=== PATIENT | male | born 1955 | race Caucasian/White ===

== ENCOUNTER 2021-10-27 05:44 | Observation (INO) ==
[2021-10-27] MEDS ORDERED: ONDANSETRON INJ 2 MG/ML 2 ML VIAL ONE ×2 (06:05→10:35)
[2021-10-27] MEDS ORDERED: MoRPHine SULFATE 4 MG/ML 1 ML CARP\\VIAL ONE (06:06)
[2021-10-27] MEDS ORDERED: KETOROLAC 30 MG/ML VIAL ONE ×2 (06:06→11:26)
[2021-10-27] MEDS ORDERED: SODIUM CHLORIDE 0.9% 1000ML 1,000 ML IV STA (06:09)
[2021-10-27] MEDS ORDERED: MoRPHine SULFATE 4 MG/ML 1 ML CARP\\VIAL IV STA ×2 (06:13→06:47)
[2021-10-27] MEDS ORDERED: ONDANSETRON INJ 2 MG/ML 2 ML VIAL IV STA (06:13)
[2021-10-27] MEDS ORDERED: KETOROLAC 30 MG/ML VIAL IV ONE (06:14)
[2021-10-27 06:18] LABS: Basophils # (auto) 0.03 K/uL (0-0.2); Basophils % (auto) 0.2 %; Eosinophils # (auto) 0.15 K/uL (0-0.5); Eosinophils % (auto) 0.8 %; Hematocrit (blood only) 47.2 % (42-52); Hemoglobin 16.7 g/dL (14.0-18.0); Immature Granulocytes # (auto) 0.26 K/uL (0.00-0.02); Immature Granulocytes % (auto) 1.5 %; Lymphocytes # (auto) 3.66 K/uL (1.2-3.4); Lymphocytes % (auto) 20.6 %; Mean Corpuscular Hemoglobin 31.2 pg (25-34); Mean Corpuscular Hgb Conc 35.4 g/dL (32-36); Mean Corpuscular Volume 88.1 fL (80-100); Mean Platelet Volume 9.3 fL (7.4-10.4); Monocytes # (auto) 1.93 K/uL (0.11-0.59); Monocytes % (auto) 10.8 %; Neutrophils # (auto) 11.76 K/uL (1.4-6.5); Neutrophils % (auto) 66.1 %; Platelet Count 325 K/uL (130-400); RDW Coefficient of Variation 13.1 % (11.5-14.5); RDW Standard Deviation 42.6 fL (36.4-46.3); Red Blood Count 5.36 M/uL (4.7-6.1); White Blood Count 17.79 K/uL (4.8-10.8)
--- NOTE | 2021-10-27 06:19 | Emergency Department Note ---
Impression & Plan Hydronephrosis with renal and ureteral calculus obstruction Admit to [facility] Hospitalist ED Provider Note NAME: CHRISTINA SULLIVAN SR AGE: 66 SEX: M ARRIVES VIA: Walk-In INFORMANT: Patient and his ED PROVIDER(S): Ese Willard DO CHIEF COMPLAINT: Right-sided abdominal pain and flank pain PLAN: Disposition: Discharged home Condition: Fair Outpatient prescription management: flomax at night and Percocet for pain Referral: Dr. Faust from urology MEDICAL DECISION MAKING: This is a 66-year-old male patient who presents to the emergency department with right-sided abdominal pain and flank pain that started around 9 PM last evening. Triage Nursing notes reviewed and agree with them. Additional history obtained from his is at the bedside Vital Signs: reviewed and remarkable for no significant abnormalities Differential diagnosis: Diverticulitis, pyelonephritis, ureteral colic, obstructive uropathy, colitis ER treatment provided: IV normal saline bolus IV Toradol IV Zofran IV morphine X2 IV Dilaudid Diagnostics interpreted by me: Laboratory studies: Imaging studies: CT OF THE ABDOMEN AND PELVIS WITHOUT CONTRAST CLINICAL HISTORY: Right flank pain. Evaluate for stone. COMPARISON STUDY: CT of the abdomen and pelvis January 25, 2012. TECHNIQUE: Axial images of the abdomen and pelvis were obtained without IV contrast. Images were reviewed in the axial, sagittal, and coronal planes. Automated exposure control was utilized for the study. A dose lowering technique was utilized adhering to the principles of ALARA. FINDINGS: A 5 mm distal right ureteral calculus located 1 cm proximal to the ureterovesical junction results in mild right hydroureteronephrosis. No additional urinary calculi are identified. Water attenuation right renal lesions are suboptimally assessed on this unenhanced exam but favor cysts. These measure up to 5.7 cm. There is no left hydronephrosis. There are small bilateral parapelvic cysts. Evaluation of the remainder of the abdomen and pelvis is suboptimal on this unenhanced exam. Hepatic steatosis is noted. Spleen, adrenal glands and pancreas are unremarkable. There is no biliary or pancreatic ductal dilatation. Appendix is unremarkable. No evidence for a bowel obstruction. No bowel wall thickening on this unenhanced exam. There is no lymphadenopathy. No acute fracture or suspicious lesion is identified. IMPRESSION: 5 mm distal right ureteral calculus results in mild right hydrouret eronephrosis. Consultants: I discussed the case with [facility] urology HPI: 66/M arrives for evaluation of right-sided flank pain and abdominal pain. The patient developed some right-sided flank pain that radiated into his right groin around 9 PM last evening. Patient's pain has become significantly worse throughout the night. He has never had pain like this in the past. ROS: See above HPI for pertinent positives & negatives. A total of 10 systems reviewed and were otherwise negative. PAST MEDICAL HISTORY:See Below PAST SURGICAL HISTORY:See Below FAMILY HISTORY:See Below SOCIAL HISTORY:See Below HOME MEDICATIONS:See List ALLERGIES:See list VITALS:See Below PHYSICAL EXAMINATION: HEENT: Head - normocephalic and atraumatic. Pupils are equal, round, and reactive to light. Extraocular eye muscles are intact, and sclera are anicteric. Nose - moist nasal mucosa without discharge. Mouth - moist buccal mucosa. Oropharynx is nonerythematous and there is no tonsillar exudate or edema noted. Neck: Supple; no adenopathy noted Heart: Regular rate and rhythm. There is a normal S1 and S2 with no murmurs, clicks, or gallops appreciated. Lungs: Clear to auscultation bilaterally with no wheezes, rales, or rhonchi. Abdomen: Soft, right lower quadrant abdominal pain, nondistended, with good bowel sounds. There are no palpable pulsatile masses or hepatosplenomegaly. There is no guarding, rigidity, or rebound noted. Extremities: No evidence of cyanosis, clubbing, or edema. There are easily palpable peripheral pulses. Skin: Warm and diaphoretic with good turgor and no rashes. ED COURSE: Times/Reassessments: 555: The patient was evaluated in room C1. A complete history and physical was performed. An IV lock was initiated and labs were drawn as above. The patient was bolused with IV normal saline solution. He was given 30 mg of IV Toradol, 4 mg of IV Zofran and 4 mg of IV morphine. Patient went for CT scan of the abdomen/pelvis. Upon returning from radiology, the patient remained somewhat uncomfortable. He was given a second dose of IV morphine. The results of the laboratory studies and CT scan with the patient and his . The plan was for the patient to be discharged home but upon preparation for discharge, the patient had return of his pain that was quite severe. A dose of IV Dilaudid. I discussed the case with [facility] urology. They recommended admission to the [facility] Hospitalist group and they would consult and consider stent placement Ese Willard DO Past Med/Surg History Medical History (Updated 10/27/21 @ 07:59 by Ese Willard DO) Acute kidney injury Chronic pain Edema of right ankle GERD without esophagitis Hypertension Right ankle pain Surgical History History of cervical spinal surgery History of lumbar surgery Family History Denies family history of Ovarian cancer Prostate cancer Myocardial infarction Breast cancer Colorectal cancer Social History (Updated 09/21/21 @ 17:41 by LETTY Seals) Smoking Status: Former smoker Age Started Using Tobacco: 18; Age Quit Using Tobacco: 35; packs per day: 5; Second Hand Exposure: No; Hx Alcohol Use: No Hx Substance Use: No Preferred Language: Lithuanian Communication Ability: Effective Visual Impairment: No Limitations Hearing Ability: Normal [employer] Efficient [employer] Manager Required: No Beliefs That Will Affect Care: None marital status: Current Living Situation: Spouse current occupational status: retired How many Children do You have: 2 Feels Safe at Home: Yes Childhood Exposure to Second-Hand Smoke: No caffeine: No during the past year weight has: remained stable Dental Care, Regularly: Yes Physical Activity Frequency: Daily Seatbelt Use: always Sunscreen Use: No Assistive Devices: Glasses Allergies Allergies Allergy/AdvReac Type Severity Reaction Status Date / Time pregabalin [From Lyrica CR] Allergy Severe anaphylaxis Verified 10/27/21 07:45 gabapentin Allergy Intermediate Extreme Verified 10/27/21 07:45 nausea and vomitting Home Meds Home Medications Medication Instructions Recorded Confirmed famotidine 10 mg tablet 10 mg PO BID PRN 10/27/21 10/27/21 Previous Rx's Medication Instructions Recorded promethazine-DM 6.25 mg-15 mg/5 mL 5 ml PO Q6H PRN #200 ml 05/10/21 oral syrup albuterol sulfate 90 mcg/actuation See Rx Instructions INHALATION 08/01/21 aerosol inhaler (Ventolin HFA) .COMPLEX PRN #8.5 g amlodipine 5 mg tablet 5 mg PO BID #180 tab 08/01/21 cyclobenzaprine 10 mg tablet 5 - 10 mg PO TID #90 tab 08/01/21 fentanyl 50 mcg/hr transdermal 1 patch TD Q72H #10 ea 08/01/21 patch fluticasone propionate 50 2 spray INTRANASAL DAILY #16 g 08/01/21 mcg/actuation nasal spray,suspension (Flonase Allergy Relief) hydrocodone 7.5 mg-acetaminophen 1 tab PO BID PRN #70 tab 08/01/21 325 mg tablet lisinopril 10 mg tablet 10 mg PO DAILY #90 tab 08/01/21 pantoprazole 40 mg tablet,delayed 40 mg PO .COMPLEX #90 tab 08/01/21 release prednisone 10 mg tablet See Rx Instructions PO DAILY #30 09/26/21 tab colchicine 0.6 mg tablet 0.6 mg PO BID PRN #30 tab 10/21/21 oxycodone-acetaminophen 5 mg-325 2 tab PO Q6H PRN #20 tab 10/27/21 mg tablet (Percocet) tamsulosin 0.4 mg capsule (Flomax) 0.4 mg PO HS #10 cap 10/27/21 Results & Data (ED) Vital Signs Vital Signs - 24 hr 10/27/21 05:47 10/27/21 06:15 10/27/21 06:30 Temperature 35.6 C L 36.6 C Temperature Source Temporal Artery Scan Oral Pulse Rate 70 Pulse Rate [Right Finger] 56 L Pulse Rhythm [Right Finger] Regular Pulse Strength [Right Finger] Normal Respiratory Rate 24 20 Respiratory Effort / Characteristics Non-Labored Spontaneous Respiratory Depth Normal Respiratory Pattern Tachypnea Blood Pressure [Right Arm] 130/84 Blood Pressure Mean [Right Arm] 99 Blood Pressure Position [Right Arm] Lying Pulse Oximetry 98 97 90 Oxygen Delivery Method Room Air Room Air Room Air Oxygen Flow Rate Sepsis Recent Fever Within 48 Hours No Sepsis New/Unexplained Change in Mental Status No Sepsis Action Taken by Nursing No Action Required 10/27/21 06:35 10/27/21 07:00 Temperature Temperature Source Pulse Rate Pulse Rate [Right Finger] Pulse Rhythm [Right Finger] Pulse Strength [Right Finger] Respiratory Rate Respiratory Effort / Characteristics Respiratory Depth Respiratory Pattern Blood Pressure [Right Arm] Blood Pressure Mean [Right Arm] Blood Pressure Position [Right Arm] Pulse Oximetry 94 98 Oxygen Delivery Method Nasal Cannula Nasal Cannula Oxygen Flow Rate 2 2 Sepsis Recent Fever Within 48 Hours Sepsis New/Unexplained Change in Mental Status Sepsis Action Taken by Nursing Laboratory Data Result diagrams: 10/27/21 06:00 10/27/21 06:00 Lab Results 10/27/21 10/27/21 10/27/21 Range/Units 06:00 06:00 06:00 WBC 17.79 H (4.8-10.8) K/uL RBC 5.36 (4.7-6.1) M/uL Hgb 16.7 (14.0-18.0) g/dL Hct 47.2 (42-52) % MCV 88.1 (80-100) fL MCH 31.2 (25-34) pg MCHC 35.4 (32-36) g/dL RDW Std Deviation 42.6 (36.4-46.3) fL RDW Coeff of Dora 13.1 (11.5-14.5) % Plt Count 325 (130-400) K/uL MPV 9.3 (7.4-10.4) fL Immature Gran % (Auto) 1.5 % Neut % (Auto) 66.1 % Lymph % (Auto) 20.6 % [place] % (Auto) 10.8 % Eos % (Auto) 0.8 % Baso % (Auto) 0.2 % Neut # (Auto) 11.76 H (1.4-6.5) K/uL Lymph # (Auto) 3.66 H (1.2-3.4) K/uL [place] # (Auto) 1.93 H (0.11-0.59) K/uL Eos # (Auto) 0.15 (0-0.5) K/uL Baso # (Auto) 0.03 (0-0.2) K/uL Immature Gran # (Auto) 0.26 H (0.00-0.02) K/uL Sodium 132 L (136-145) mmol/L Potassium 4.3 (3.5-5.1) mmol/L Chloride 100 (98-107) mmol/L Carbon Dioxide 22 (21-32) mmol/L Anion Gap 10 (3-11) BUN 29 H (6-23) mg/dl Creatinine 1.58 H (0.6-1.4) mg/dl Est Cr Clr Drug Dosing 62.5 ml/min Est GFR ( Amer) 52.4 ml/min Est GFR (Non-Af Amer) 45.2 ml/min BUN/Creatinine Ratio 18.4 (10-20) Glucose 122 H (70-99(Fasting)) mg/dl Calcium 9.7 (8.5-10.1) mg/dl Total Bilirubin 0.9 (0.2-1.0) mg/dl AST 23 (13-39) U/L ALT 50 (7-52) U/L Alkaline Phosphatase 48 (34-104) U/L Total Protein 7.3 (6.0-8.3) gm/dl Albumin 4.3 (3.4-5.0) gm/dl Globulin 3.0 (2.5-4.0) gm/dl Albumin/Globulin Ratio 1.4 (0.9-2) Lipase 49 (11-82) U/L Urine Color Yellow Urine Appearance Clear (Clear) Urine pH 5.5 (4.5-7.5) Ur Specific [place] 1.022 (1.000-1.030) Urine Protein Negative (Negative) Urine Glucose (UA) Negative (Negative) Urine Ketones Negative (Negative) Urine Blood 3+ H (Negative) Urine Nitrite Negative (Negative) Urine Bilirubin Negative (Negative) Urine Urobilinogen Negative (Negative) Ur Leukocyte Esterase Negative (Negative) Urine WBC (Auto) 1-5 (0-5) /hpf Urine RBC (Auto) >30 H (0-4) /hpf U Hyaline Cast (Auto) 0 (0-5) /lpf U Epithel Cells (Auto) 0-5 (0-5) /lpf Urine Bacteria (Auto) Negative (Negative) Administered Medications Discontinued Medications Sodium Chloride (Nss 1000ml) 1,000 mls @ 999 mls/hr IV .Q1H1M STA Stop: 10/27/21 07:09 Last Infusion: 10/27/21 07:26 Dose: 0 mls/hr Documented by: [id number] Admin: 10/27/21 06:12 Dose: 999 mls/hr Documented by: [id number] Ketorolac Tromethamine (Ketorolac 30 Mg/Ml Vial) Confirm Administered Dose 30 mg .ROUTE .STK-MED ONE Stop: 10/27/21 06:07 Last Admin: 10/27/21 06:08 Dose: 30 mg Documented by: [id number] Ketorolac Tromethamine (Ketorolac 30 Mg/Ml Vial) 30 mg IV NOW ONE Stop: 10/27/21 06:15 Last Admin: 10/27/21 06:15 Dose: Not Given Documented by: [id number] Morphine Sulfate (Morphine Sulfate 4 Mg/Ml 1 Ml Carp\Vial) Confirm Administered Dose 4 mg .ROUTE .STK-MED ONE Stop: 10/27/21 06:07 Last Admin: 10/27/21 06:08 Dose: 4 mg Documented by: [id number] Morphine Sulfate (Morphine Sulfate 4 Mg/Ml 1 Ml Carp\Vial) 4 mg IV NOW STA Stop: 10/27/21 06:14 Last Admin: 10/27/21 06:15 Dose: Not Given Documented by: [id number] Morphine Sulfate (Morphine Sulfate 4 Mg/Ml 1 Ml Carp\Vial) 4 mg IV NOW STA Stop: 10/27/21 06:48 Last Admin: 10/27/21 06:53 Dose: 4 mg Documented by: [id number] Ondansetron HCl (Ondansetron Inj 2 Mg/Ml 2 Ml Vial) Confirm Administered Dose 4 mg .ROUTE .STK-MED ONE Stop: 10/27/21 06:06 Last Admin: 10/27/21 06:08 Dose: 4 mg Documented by: [id number] Ondansetron HCl (Ondansetron Inj 2 Mg/Ml 2 Ml Vial) 4 mg IV NOW STA Stop: 10/27/21 06:14 Last Admin: 10/27/21 06:15 Dose: Not Given Documented by: [id number] Tamsulosin HCl (Tamsulosin Hcl 0.4 Mg Cap) 0.4 mg PO NOW ONE Stop: 10/27/21 07:29 Last Admin: 10/27/21 07:38 Dose: 0.4 mg Documented by: [id number] Imaging Data Radiologist's Impression: Abdomen/Pelvis CT 10/27/21 06:09 CT OF THE ABDOMEN AND PELVIS WITHOUT CONTRAST CLINICAL HISTORY: Right flank pain. Evaluate for stone. COMPARISON STUDY: CT of the abdomen and pelvis January 25, 2012. TECHNIQUE: Axial images of the abdomen and pelvis were obtained without IV contrast. Images were reviewed in the axial, sagittal, and coronal planes. Automated exposure control was utilized for the study. A dose lowering technique was utilized adhering to the principles of ALARA. FINDINGS: A 5 mm distal right ureteral calculus located 1 cm proximal to the ureterovesical junction results in mild right hydroureteronephrosis. No additional urinary calculi are identified. Water attenuation right renal lesions are suboptimally assessed on this unenhanced exam but favor cysts. These measure up to 5.7 cm. There is no left hydronephrosis. There are small bilateral parapelvic cysts. Evaluation of the remainder of the abdomen and pelvis is suboptimal on this unenhanced exam. Hepatic steatosis is noted. Spleen, adrenal glands and pancreas are unremarkable. There is no biliary or pancreatic ductal dilatation. Appendix is unremarkable. No evidence for a bowel obstruction. No bowel wall thickening on this unenhanced exam. There is no lymphadenopathy. No acute fracture or suspicious lesion is identified. IMPRESSION: 5 mm distal right ureteral calculus results in mild right hydroureteronephrosis. ACT 112: Negative or not required by law. Electronically signed by: Oz Howell M.D. 10/27/2021 6:39 AM Discharge Plan Visit Data Chief Complaint: Abdominal Pain Stated Complaint: ABD PAIN ED Provider: Ese Willard Discharge Problem: Hydronephrosis with renal and ureteral calculus obstruction Discharge Instructions Krames/Other Patient Handouts: Kidney Stones Expectant Tx, ED Kidney Stone w/ Colic Activity Restrictions/Additional Instructions: Rest Take plenty of clear liquids Flomax-1 tab every night Percocet-2 tabs every 6 hours for pain. (Cannot take this medication while driving.) Return to the emergency department if you develop any fever, vomiting, or i ntractable pain Follow-up with urology as directed if pain persists Forms Stand Alone Forms: My [facility] Prescriptions Prescriptions: New tamsulosin [Flomax] 0.4 mg capsule 0.4 mg PO HS Qty: 10 RF: 0 oxycodone-acetaminophen [Percocet] 5-325 mg tablet 2 tab PO Q6H PRN (Reason: pain) Qty: 20 RF: 0 No Action fentanyl 50 mcg/hr patch 72 hour 1 patch TD Q72H Qty: 10 RF: 0 hydrocodone-acetaminophen 7.5-325 mg tablet 1 tab PO BID PRN (Reason: pain, severe) Qty: 70 RF: 0 albuterol sulfate [Ventolin HFA] 90 mcg/actuation HFA aerosol inhaler See Rx Instructions inhalation .COMPLEX PRN (Reason: shortness of breath or wheezing) Qty: 8.5 RF: 0 amlodipine 5 mg tablet 5 mg PO BID Qty: 180 RF: 3 cyclobenzaprine 10 mg tablet 5 - 10 mg PO TID Qty: 90 RF: 1 fluticasone propionate [Flonase Allergy Relief] 50 mcg/actuation spray,suspension 2 spray intranasal DAILY Qty: 16 RF: 3 lisinopril 10 mg tablet 10 mg PO DAILY Qty: 90 RF: 1 pantoprazole 40 mg tablet,delayed release (DR/EC) 40 mg PO .COMPLEX Qty: 90 RF: 1 prednisone 10 mg tablet See Rx Instructions PO DAILY Qty: 30 RF: 0 colchicine 0.6 mg tablet 0.6 mg PO BID PRN (Reason: Gout Flare) Qty: 30 RF: 1 promethazine-DM 6.25-15 mg/5 mL syrup 5 ml PO Q6H PRN (Reason: cough) Qty: 200 RF: 0 famotidine 10 mg Tablet 10 mg PO BID PRN (Reason: Heartburn) RF: 0 Referrals Referrals: Anish Henry III, CRNP [Primary Care Provider] - Osiel Faust MD [Physician] -
[2021-10-27 06:29] LABS: Albumin Globulin Ratio 1.4 (0.9-2); Albumin Level 4.3 gm/dl (3.4-5.0); BUN Creatinine Ratio 18.4 (10-20); Bilirubin,Total 0.9 mg/dl (0.2-1.0); Calcium 9.7 mg/dl (8.5-10.1); Creatinine Clr Calc Pharmacy 62.5 ml/min; Est GFR (African American) 52.4 ml/min; Est GFR (Non-African American) 45.2 ml/min; Potassium 4.3 mmol/L (3.5-5.1); Total Protein 7.3 gm/dl (6.0-8.3)
--- NOTE | 2021-10-27 06:41 | CT Scan Report ---
CT OF THE ABDOMEN AND PELVIS WITHOUT CONTRAST CLINICAL HISTORY: Right flank pain. Evaluate for stone. COMPARISON STUDY: CT of the abdomen and pelvis January 25, 2012. TECHNIQUE: Axial images of the abdomen and pelvis were obtained without IV contrast. Images were revi ewed in the axial, sagittal, and coronal planes. Automated exposure control was utilized for the geovanna dy. A dose lowering technique was utilized adhering to the principles of ALARA. FINDINGS: A 5 mm distal right ureteral calculus located 1 cm proximal to the ureterovesical junction results in mild right hydroureteronephrosis. No additional urinary calculi are identified. Water atte nuation right renal lesions are suboptimally assessed on this unenhanced exam but favor cysts. These measure up to 5.7 cm. There is no left hydronephrosis. There are small bilateral parapelvic cysts. Ev aluation of the remainder of the abdomen and pelvis is suboptimal on this unenhanced exam. Hepatic st eatosis is noted. Spleen, adrenal glands and pancreas are unremarkable. There is no biliary or pancre atic ductal dilatation. Appendix is unremarkable. No evidence for a bowel obstruction. No bowel wall thickening on this unenhanced exam. There is no lymphadenopathy. No acute fracture or suspicious lesi on is identified. IMPRESSION: 5 mm distal right ureteral calculus results in mild right hydroureteronephrosis. ACT 112: Negative or not required by law. Electronically signed by: Oz Howell M.D. 10/27/2021 6:39 AM
[2021-10-27 06:49] LABS: Appearance Urine Clear (Clear); Bacteria Urine Automated Negative (Negative); Bilirubin Urine Negative (Negative); Blood Urine 3+ (Negative); Cast Urine Automated 0 /lpf (0-5); Color Urine Yellow; Epithelial Cell Urine Auto 0-5 /lpf (0-5); Glucose Urine UA Negative (Negative); Ketones Urine Negative (Negative); Leukocyte Esterase Urine Negative (Negative); Nitrite Urine Negative (Negative); Protein Urine Negative (Negative); RBC Urine Automated >30 /hpf (0-4); Specific Gravity Urine 1.022 (1.000-1.030); Urobilinogen Urine Negative (Negative); pH Urine 5.5 (4.5-7.5)
[2021-10-27] MEDS ORDERED: TAMSULOSIN HCL 0.4 MG CAP PO ONE (07:28)
[2021-10-27] MEDS ORDERED: HYDROmorphone INJ 1 MG/ML SYRINGE IV STA (08:04)
--- NOTE | 2021-10-27 08:54 | Urology Consultation ---
Date of Consultation October 27, 2021 Assessment & Plan (1) Hydronephrosis with renal and ureteral calculus obstruction: 66yo M admitted with intractable right flank pain secondary to an obstructing 5mm distal right ureteral stone. - Afebrile, hemodynamically stable. - Labs reviewed - Wbc 17.79, Creatinine 1.58 - UA not suspicious for infection. - Plan of care reviewed with Dr. Faust, on-call urologist. - Given his intractable right flank pain with associated nausea will plan to proceed to OR today for cystoscopy, right retrograde pyelogram, right ureteral stent placement, possible ureteroscopy, laser lithotripsy, stone treatment depending on findings. - Risks and benefits to be reviewed with patient by Dr. Faust. OR notified. Will cover with IV Ancef preoperatively. - Keep NPO and strain all urine. - Continue supportive care and pain management. - Will continue to follow Supervising Physician Co-Signing Physician Notes Discussed patient with FLORENTIN. Agree with plan. To the OR for right stent placement. May attempt to treat stone if able to gain access to the ureter. History of Present Illness History of Present Illness 66yo M who presented to the ED earlier this morning with right-sided abdominal pain and flank pain with associated nausea. CT abdomen pelvis was obtained and notable for a 5 mm distal right ureteral calculus results in mild right hydroureteronephrosis. The patient was given IVF and IV pain medication but continued to have intractable pain. He was admitted to the hospital service for pain management. Pt examined at bedside in the ED.Awake, resting in bed on arrival. Appears uncomfortable. Still with significant right flank pain despite IV pain medication. He has been straining his urine since arrival and notes no stone passage. He has been NPO. Denies prior hx of stones. Allergies Allergy/AdvReac Type Severity Reaction Status Date / Time pregabalin [From Lyrica CR] Allergy Severe anaphylaxis Verified 10/27/21 07:45 gabapentin Allergy Intermediate Extreme Verified 10/27/21 07:45 nausea and vomitting Patient History Medical History Acute kidney injury Chronic pain Edema of right ankle GERD without esophagitis Hypertension Right ankle pain Surgical History History of cervical spinal surgery x2 History of lumbar surgery once or twice? per patient Family History Denies family history of Ovarian cancer Prostate cancer Myocardial infarction Breast cancer Colorectal cancer Social History Smoking Status: Former smoker Age Started Using Tobacco: 18; Age Quit Using Tobacco: 35; packs per day: 5; Second Hand Exposure: No; Hx Alcohol Use: No Hx Substance Use: No Preferred Language: Eritrean Communication Ability: Effective Visual Impairment: No Limitations Hearing Ability: Normal Supervisor [employer] Required: No Beliefs That Will Affect Care: None marital status: Current Living Situation: Spouse current occupational status: retired How many Children do You have: 2 Feels Safe at Home: Yes Childhood Exposure to Second-Hand Smoke: No caffeine: No during the past year weight has: remained stable Dental Care, Regularly: Yes Physical Activity Frequency: Daily Seatbelt Use: always Sunscreen Use: No Assistive Devices: Glasses Review of Systems Review of Systems: All systems reviewed & are unremarkable except as noted in HPI & below Physical Exam Constitutional: + uncomfortable Neck: normal visual inspection Respiratory: no respiratory distress and no labored breathing Gastrointestinal (Abdomen): Inspection/Auscultation: abdomen normal to inspection Percussion/Palpation: + abdomen tender (RLQ) and abdomen soft Musculoskeletal: Head/Neck/Chest: normocephalic Skin: Warm and dry Neurologic: moves all extremities and awake Psychiatric: Orientation: alert and oriented x 3 Genitourinary: Right flank tenderness with palpation Results & Data ([facility]) Vital Signs (Past 12 Hours) Vital Signs Temp Pulse Pulse Resp BP Pulse Ox 10/27/21 07:00 98 10/27/21 06:35 94 10/27/21 06:30 90 10/27/21 06:15 36.6 C 56 L 20 130/84 97 10/27/21 05:47 35.6 C L 70 24 98 PG Care Time/CCT Total # of Minutes Spent Total Time Spent with Patient: Total time spent is greater than 50% in coordination of care (as documented) at patient's floor/unit and/or counseling patient: Coding Level of Care Code 44719 Initial Inpt Care Lvl 2 Diagnoses Hydronephrosis with renal and ureteral calculus obstruction N13.2
[2021-10-27] MEDS ORDERED: ceFAZolin 2000MG 2,000 MG/15 ML SYR IV ONE (08:57)
[2021-10-27] MEDS ORDERED: MIDAZOLAM HCL 1 MG/ML 2ML VIAL ONE (09:54)
[2021-10-27] MEDS ORDERED: fentaNYL citrate 100 MCG/2 ML VIAL ONE (09:54)
[2021-10-27] MEDS ORDERED: PROPOFOL IV EMULSION 10 MG/ML 20 ML VIAL IV ONE (10:35)
[2021-10-27] MEDS ORDERED: DEXAMETHASONE SOD INJ 4 MG/ML VIAL ONE (10:35)
[2021-10-27] MEDS ORDERED: LIDOCAINE 2% 2 ML VIAL/AMP(20MG/ML) INFIL ONE (10:36)
--- NOTE | 2021-10-27 10:59 | Anesthesiology Consultation ---
Date of Service October 27, 2021 Assessment & Plan Chart Review Chart Review: Acceptable Risk for Surgery Consults Requested none History Surgery Operation Date: 10/27/21 09:30 Proposed Procedures p Cystoscopy, Right Retrograde Pyelogram, Stent Placement, Possible Ureteroscopy, Laser Lithotripsy Stone Sivakumar Faust MD Height/Weight Height: 6 ft 1 in Weight: 117 kg Allergies Allergy/AdvReac Type Severity Reaction Status Date / Time pregabalin [From Lyrica CR] Allergy Severe anaphylaxis Verified 10/27/21 10:22 gabapentin Allergy Intermediate Extreme Verified 10/27/21 10:22 nausea and vomitting Medications Home Medications Medication Instructions Recorded Confirmed Last Taken promethazine-DM 6.25 mg-15 mg/5 mL 5 ml PO Q6H PRN #200 ml 05/10/21 10/27/21 Unknown oral syrup albuterol sulfate 90 mcg/actuation See Rx Instructions INHALATION 08/01/21 10/27/21 Unknown aerosol inhaler (Ventolin HFA) .COMPLEX PRN #8.5 g amlodipine 5 mg tablet 5 mg PO BID #180 tab 08/01/21 10/27/21 Unknown cyclobenzaprine 10 mg tablet 5 - 10 mg PO TID #90 tab 08/01/21 10/27/21 10/27/21 10 mg fentanyl 50 mcg/hr transdermal 1 patch TD Q72H #10 ea 08/01/21 10/27/21 Unknown patch fluticasone propionate 50 2 spray INTRANASAL DAILY #16 g 08/01/21 10/27/21 Unknown mcg/actuation nasal spray,suspension (Flonase Allergy Relief) hydrocodone 7.5 mg-acetaminophen 1 tab PO BID PRN #70 tab 08/01/21 10/27/21 10/27/21 325 mg tablet 2 tabs lisinopril 10 mg tablet 10 mg PO DAILY #90 tab 08/01/21 10/27/21 Unknown pantoprazole 40 mg tablet,delayed 40 mg PO .COMPLEX #90 tab 08/01/21 10/27/21 Unknown release prednisone 10 mg tablet See Rx Instructions PO DAILY #30 09/26/21 10/27/21 Unknown tab colchicine 0.6 mg tablet 0.6 mg PO BID PRN #30 tab 10/21/21 10/27/21 Unknown famotidine 10 mg tablet 10 mg PO BID PRN 10/27/21 10/27/21 Unknown oxycodone-acetaminophen 5 mg-325 2 tab PO Q6H PRN #20 tab 10/27/21 Unknown mg tablet (Percocet) tamsulosin 0.4 mg capsule (Flomax) 0.4 mg PO HS #10 cap 10/27/21 Unknown NPO Date Last Intake of Fluids: 10/27/21 Time Last Intake of Fluids: 09:00 Last Intake of Fluids Comment: had 1/2 cup water in ER- also had 1 cup earlier this am in ER Date Last Intake of Solids: 10/26/21 Time Last Intake of Solids: 21:00 Past Medical History Medical History Acute kidney injury Chronic pain Edema of right ankle GERD without esophagitis Hypertension Right ankle pain Past Family History Family History Denies family history of Ovarian cancer Prostate cancer Myocardial infarction Breast cancer Colorectal cancer Past Surgical History Surgical History History of cervical spinal surgery x2 History of lumbar surgery once or twice? per patient Social History Smoking Status: Former smoker Hx Alcohol Use: No Hx Substance Use: No Physical Exam Vital Signs Last Vital Signs Temp 36.3 C L 10/27/21 10:22 Pulse 55 L 10/27/21 10:28 Resp 18 10/27/21 10:28 BP 125/91 10/27/21 10:28 Pulse Ox 97 10/27/21 10:28 Testing Laboratory Results 10/27/21 06:00 10/27/21 06:00 Urine Color Yellow 10/27/21 06:00 Urine Appearance Clear (Clear) 10/27/21 06:00 Urine pH 5.5 (4.5-7.5) 10/27/21 06:00 Ur Specific [place] 1.022 (1.000-1.030) 10/27/21 06:00 Urine Protein Negative (Negative) 10/27/21 06:00 Urine Glucose (UA) Negative (Negative) 10/27/21 06:00 Urine Ketones Negative (Negative) 10/27/21 06:00 Urine Nitrite Negative (Negative) 10/27/21 06:00 Ur Leukocyte Esterase Negative (Negative) 10/27/21 06:00 Urine WBC (Auto) 1-5 /hpf (0-5) 10/27/21 06:00 Urine RBC (Auto) >30 /hpf (0-4) H 10/27/21 06:00 U Hyaline Cast (Auto) 0 /lpf (0-5) 10/27/21 06:00 U Epithel Cells (Auto) 0-5 /lpf (0-5) 10/27/21 06:00 Urine Bacteria (Auto) Negative (Negative) 10/27/21 06:00
[2021-10-27] MEDS ORDERED: HYDROmorphone INJ 2 MG/ML SYR/VIAL IV PRN (11:01)
[2021-10-27] MEDS ORDERED: ONDANSETRON INJ 2 MG/ML 2 ML VIAL IV PRN (11:01)
[2021-10-27] MEDS ORDERED: ATROPINE SULFATE 0.1 MG/ML 10ML SYR IV PRN (11:01)
[2021-10-27] MEDS ORDERED: ePHEDrine sulfate 50 MG/ML AMP IV PRN (11:01)
[2021-10-27] MEDS ORDERED: PROMETHAZINE HCL 12.5 MG in SODIUM CHLORIDE 0.9% 50 ML IV PRN (11:01)
[2021-10-27] MEDS ORDERED: fentaNYL citrate 100 MCG/2 ML VIAL IV PRN (11:01)
[2021-10-27] MEDS ORDERED: DIATRIZOATE MEGLUMINE 30% 100ML VIAL INSTIL ONE (11:33)
--- NOTE | 2021-10-27 11:33 | Post Operative Brief Note ---
PG Immediate Post Op with CF Date of Surgery October 27, 2021 Pre & Post Diagnosis Operation Date: 10/27/21 09:30 Pre-Op Diagnosis: right ureteral calculus Post-Op Diagnosis: right ureteral calculus I identified the patient and participated in the time-out.: Yes Procedure Operation Date: 10/27/21 09:30 Actual Procedures p Cystoscopy, Right Retrograde Pyelogram, RIGHT URETERAL Stent Placement, RIGHT Ureteroscopy, Laser Lithotripsy Stone Treamtent(Right) - Osiel Faust MD Surgeon Osiel Faust MD Actuarial Intern Laz Baker MSII Estimated Blood Loss 5 Findings See Below Right retrograde showed mild hydro. Unable to get scope past distal ureter so opted to place stent. Stent in appropriate position Specimens Specimen Description: no specimen per surgeon Drains Other (6x26 R stent ) Complications none
--- NOTE | 2021-10-27 11:36 | Operative Report ---
PG Post Operative Report Pre & Post Diagnosis Operation Date: 10/27/21 09:30 Pre-Op Diagnosis: right ureteral calculus Post-Op Diagnosis: right ureteral calculus I identified the patient and participated in the time-out.: Yes Procedure Operation Date: 10/27/21 09:30 Actual Procedures p Cystoscopy, Right Retrograde Pyelogram with radiographic interpretation RIGHT URETERAL Stent Placement, RIGHT Ureteroscopy - Osiel Faust MD Surgeon Osiel Faust MD Electronic Operator Laz Baker MSII Estimated Blood Loss 5 Findings See Below Normal urethra and bladder. Unable to get scope passed distal ureter to stone so opted to place stent. Stent in appropriate position. Right retrograde pyelogram showed mild hydronephrosis and filling defect in the right distal ureter. Specimens None Drains 6 Korean by 26 mm right ureteral stent Anesthesia Type General Complications none Indications 66-year-old male with a 5 mm right distal ureteral calculus. He was taken to the OR for stent placement due to refractory pain. Leukocytosis of 17 but likely due to dehydration or steroid use. UA was negative. Description of Procedure After informed consent was obtained, the patient was transported operative suite. General anesthesia was induced. The patient was placed in dorsolithotomy position prepped and draped in a sterile fashion. They received preoperative Ancef for antibiotic prophylaxis. An appropriate surgical timeout was performed. A 22 Korean rigid scope was inserted per urethra into the bladder. Winkler cystoscopy revealed no stones or lesions. I turned my attention the right ureteral orifice and intubated this with a 5 Korean open-ended catheter. A right retrograde pyelogram was shot which showed the above-noted findings. A sensor wire was advanced into the kidney and confirmed fluoroscopically. This was tagged with a size a safety wire. I then advanced a semirigid ureteroscope along the wire into the distal ureter. Unfortunately, I was unable to get past the distal ureter to treat the stone so I opted to place a stent and bring him back for a second procedure. I shot another retrograde pyelogram with a 5 Korean open-ended catheter to delineate the pelvis. I deployed a 6 Korean by 26 cm right ureteral stent with a good proximal coil in the renal pelvis and a good distal coil noted in the bladder, confirmed fluoroscopically and under direct visualization, respectively. The bladder was emptied and the scope was removed. This concluded the end of the case. All counts were correct at the end of the case. I was present, scrubbed, and actively participated for the entirety of the procedure. I attest to the content of the Intraoperative Record and any orders documented therein. Any exceptions are noted below.
--- NOTE | 2021-10-27 12:37 | Fluoroscopy Report ---
FL retrograde includes kub CLINICAL HISTORY: RT RETROGRADE AND STENT PLACEMENT COMPARISON STUDY: None FLUOROSCOPY TIME: 17 seconds. FLUOROSCOPIC IMAGES: 5 FINDINGS: Retrograde urethrogram was performed on the right side with subsequent placement of a doubl e-J ureteral stent. IMPRESSION: Status post retrograde urethrogram and stent placement. ACT 112: Negative or not required by law. Electronically signed by: Kelvin Rodriguez M.D. 10/27/2021 12:36 PM
[2021-10-27] MEDS ORDERED: ALBUTEROL HFA 8 GM INHALER INH PRN (12:42)
[2021-10-27] MEDS ORDERED: FAMOTIDINE 10 MG TABLET PO PRN (12:42)
[2021-10-27] MEDS ORDERED: CYCLOBENZAPRINE HCL 5 MG TAB PO PRN (12:42)
--- NOTE | 2021-10-27 12:50 | History & Physical Report ---
Date of Service October 27, 2021 Assessment & Plan (1) Hydronephrosis with renal and ureteral calculus obstruction: Plan: 5mm stone near the right UPJ. S/p stent with Dr. Faust on 10/27. - Flomax, pain control - Discussed with urology - No need for abx at this time given clean urine. (2) Gout: Plan: Prior gouty flare. Now has seen rheumatology. Plan for allopurinol 100 mg and prednisone taper to help reduce uric acid levels. (3) CKD (chronic kidney disease) stage 2, GFR 60-89 ml/min: Plan: Baseline Cr ~1.5. Presently at baseline or mildly higher possibly due to right, mild hydronephrosis. - Monitor (4) Lumbar disc disease: Plan: Follow with PCP and Pain Management. - Continue home meds (5) Hypertension: Plan: BP was 130/85 today. - Continue home amlodipine and lisinopril Plan: DVT ppx - Early ambulation & discharge Admission and Anticipated Discharge Date Admission Date: October 27, 2021 History of Present Illness Primary Care Provider: Anish Henry, III, [employer]ENTICE 66yo M w/ hx of back pain who presents with right kidney stone. The pain started around 9pm. Associated with nausea. Could not control the pain at home. In the ER, required IV pain medication. No dysuria. Never had any prior kidney stones. Reports no fevers/chills, chest pain, shortness of breath, abdominal pain. Allergies Allergy/AdvReac Type Severity Reaction Status Date / Time pregabalin [From Lybookera VAISHALI] Allergy Severe anaphylaxis Verified 10/27/21 10:22 gabapentin Allergy Intermediate Extreme Verified 10/27/21 10:22 nausea and vomitting Home Medications Medication Instructions Recorded Confirmed Type promethazine-DM 6.25 mg-15 mg/5 mL 5 ml PO Q6H PRN #200 ml 05/10/21 10/27/21 Rx oral syrup albuterol sulfate 90 mcg/actuation See Rx Instructions INHALATION 08/01/21 10/27/21 Rx aerosol inhaler (Ventolin HFA) .COMPLEX PRN #8.5 g amlodipine 5 mg tablet 5 mg PO BID #180 tab 08/01/21 10/27/21 Rx cyclobenzaprine 10 mg tablet 5 - 10 mg PO TID #90 tab 08/01/21 10/27/21 Rx fentanyl 50 mcg/hr transdermal 1 patch TD Q72H #10 ea 08/01/21 10/27/21 Rx patch fluticasone propionate 50 2 spray INTRANASAL DAILY #16 g 08/01/21 10/27/21 Rx mcg/actuation nasal spray,suspension (Flonase Allergy Relief) hydrocodone 7.5 mg-acetaminophen 1 tab PO BID PRN #70 tab 08/01/21 10/27/21 Rx 325 mg tablet lisinopril 10 mg tablet 10 mg PO DAILY #90 tab 08/01/21 10/27/21 Rx pantoprazole 40 mg tablet,delayed 40 mg PO .COMPLEX #90 tab 08/01/21 10/27/21 Rx release prednisone 10 mg tablet See Rx Instructions PO DAILY #30 09/26/21 10/27/21 Rx tab colchicine 0.6 mg tablet 0.6 mg PO BID PRN #30 tab 10/21/21 10/27/21 Rx famotidine 10 mg tablet 10 mg PO BID PRN 10/27/21 10/27/21 History oxybutynin chloride 5 mg 5 mg PO DAILY #30 tab 10/27/21 Rx tablet,extended release 24 hr (Ditropan XL) oxycodone-acetaminophen 5 mg-325 2 tab PO Q6H PRN #20 tab 10/27/21 Rx mg tablet (Percocet) tamsulosin 0.4 mg capsule (Flomax) 0.4 mg PO HS #30 cap 10/27/21 Rx Past Med/Surg History Medical History (Updated 10/27/21 @ 12:49 by Danny Mata MD) Acute kidney injury Chronic pain CKD (chronic kidney disease) stage 2, GFR 60-89 ml/min Edema of right ankle GERD without esophagitis Hypertension Right ankle pain Surgical History History of cervical spinal surgery x2 History of lumbar surgery once or twice? per patient Family History Denies family history of Ovarian cancer Prostate cancer Myocardial infarction Breast cancer Colorectal cancer Social History Smoking Status: Former smoker Age Started Using Tobacco: 18; Age Quit Using Tobacco: 35; packs per day: 5; Second Hand Exposure: No; Hx Alcohol Use: No Hx Substance Use: No Preferred Language: Kosovan Communication Ability: Effective Visual Impairment: No Limitations Hearing Ability: Normal [employer] Vault Worker Required: No Beliefs That Will Affect Care: None marital status: Current Living Situation: Spouse current occupational status: retired How many Children do You have: 2 Feels Safe at Home: Yes Childhood Exposure to Second-Hand Smoke: No caffeine: No during the past year weight has: remained stable Dental Care, Regularly: Yes Physical Activity Frequency: Daily Seatbelt Use: always Sunscreen Use: No Assistive Devices: Glasses Review of Systems Review of Systems: All systems reviewed & are unremarkable except as noted in HPI & below Physical Exam Constitutional: + acute distress and average body habitus Eyes: EOM intact bilaterally; no conjunctival abnormality ENMT: external ear and nose normal, oropharynx normal Neck: trachea midline, no thyromegaly normal visual inspection Respiratory: normal respiratory effort, lungs clear to auscultation no respiratory distress Cardiovascular: RRR, no murmur, no edema Gastrointestinal (Abdomen): Inspection/Auscultation: abdomen normal to inspection; abdomen not distended Musculoskeletal: no cyanosis or clubbing, extremities motor strength 5/5 Skin: no rashes, warm and dry Neurologic: moves all extremities and awake Psychiatric: Orientation: alert, oriented to person and cooperative Results & Data Results & Data ([facility]) Vital Signs (Past 12 Hours) Vital Signs Temp Pulse Pulse Pulse Resp BP BP 10/27/21 12:15 36.0 C L 54 L 14 109/84 10/27/21 12:05 58 L 14 121/73 10/27/21 11:55 58 L 14 112/76 10/27/21 11:48 36.1 C L 57 L 14 97/75 L 10/27/21 10:28 55 L 18 125/91 10/27/21 10:22 36.3 C L 48 L 20 129/87 10/27/21 07:00 10/27/21 06:35 10/27/21 06:30 10/27/21 06:15 36.6 C 56 L 20 130/84 10/27/21 05:47 35.6 C L 70 24 Pulse Ox 10/27/21 12:15 96 10/27/21 12:05 97 10/27/21 11:55 97 10/27/21 11:48 97 10/27/21 10:28 97 10/27/21 10:22 97 10/27/21 07:00 98 10/27/21 06:35 94 10/27/21 06:30 90 10/27/21 06:15 97 10/27/21 05:47 98 Code Status & VTE Plan VTE Prophylaxis Plan VTE Prophylaxis will be ordered: Yes PG Care Time/CCT Total # of Minutes Spent Total Time Spent with Patient: Total time spent is greater than 50% in coordination of care (as documented) at patient's floor/unit and/or counseling patient: Coding Level of Care Code 36173 Initial Inpt Care Lvl 3 Diagnoses Hydronephrosis with renal and ureteral calculus obstruction N13.2 Gout M10.9 CKD (chronic kidney disease) stage 2, GFR 60-89 ml/min N18.2 Lumbar disc disease M51.9 Hypertension I10 Hypertension type: essential hypertension (1) Hypertension Hypertension type: essential hypertension Qualified Code(s): I10 - Essential (primary) hypertension
[2021-10-27] MEDS ORDERED: fentaNYL 50 MCG/HR TDSY TD SCH (13:00)
[2021-10-27] MEDS: SODIUM CHLORIDE 0.9% 1000ML 1,000 ML IV SCH (13:07)
[2021-10-27] MEDS: ONDANSETRON INJ 2 MG/ML 2 ML VIAL IV PRN ×2 (13:13→20:41)
[2021-10-27] MEDS: PANTOprazole 40 MG TAB PO SCH (13:41)
[2021-10-27] MEDS: lisinopril 10 MG TAB PO SCH (13:41)
[2021-10-27] MEDS: amLODIPine BESYLATE 5 MG TAB PO SCH ×2 (13:41→20:37)
[2021-10-27] MEDS: FLUTICASONE PROPIONATE NA SPR 16 GM BTL NAE SCH (13:42)
[2021-10-27] MEDS: HYDROCODONE/ACETAMINOPHEN 7.5/325MG TAB PO PRN ×2 (13:45→23:08)
--- NOTE | 2021-10-27 13:53 | Anesthesiology Progress Note ---
Date of Service October 27, 2021 Anesthesia Post Procedure Vital Signs Vital Signs: Temp Pulse Pulse Pulse Resp BP BP 10/27/21 13:30 36.3 C L 48 L 16 133/78 10/27/21 13:02 36.4 C L 46 L 12 134/85 10/27/21 12:30 36.4 C L 55 L 18 130/83 10/27/21 12:15 36.0 C L 54 L 14 109/84 10/27/21 12:05 58 L 14 121/73 10/27/21 11:55 58 L 14 112/76 10/27/21 11:48 36.1 C L 57 L 14 97/75 L 10/27/21 10:28 55 L 18 125/91 10/27/21 10:22 36.3 C L 48 L 20 129/87 10/27/21 07:00 10/27/21 06:35 10/27/21 06:30 10/27/21 06:15 36.6 C 56 L 20 130/84 10/27/21 05:47 35.6 C L 70 24 Pulse Ox 10/27/21 13:30 97 10/27/21 13:02 95 10/27/21 12:30 98 10/27/21 12:15 96 10/27/21 12:05 97 10/27/21 11:55 97 10/27/21 11:48 97 10/27/21 10:28 97 10/27/21 10:22 97 10/27/21 07:00 98 10/27/21 06:35 94 10/27/21 06:30 90 10/27/21 06:15 97 10/27/21 05:47 98 Pain Intensity Left Buttock: Pain Intensity: 5 Transfer of Care Handoff Completed per policy Notes Mental Status: alert / awake / arousable and participated in evaluation Patient Amnestic to Procedure: Yes Nausea / Vomiting: adequately controlled Pain: adequately controlled Airway Patency, RR, SpO2: stable & adequate BP & HR: stable & adequate Hydration State: stable & adequate Anesthetic Complications: no major complications apparent
[2021-10-27] MEDS: MoRPHine SULFATE 4 MG/ML 1 ML CARP\\VIAL IV PRN ×2 (15:08→20:41)
[2021-10-27] MEDS ORDERED: KETOROLAC TROMETHAMINE 15 MG/ML VIAL IV ONE (16:12)
[2021-10-27] MEDS: CHECK fentaNYL PATCH PLACEMENT SCH (16:12)
[2021-10-28] MEDS: SODIUM CHLORIDE 0.9% 1000ML 1,000 ML IV SCH (01:18)
[2021-10-28] MEDS: CHECK fentaNYL PATCH PLACEMENT SCH ×2 (01:19→07:45)
[2021-10-28] MEDS: ONDANSETRON INJ 2 MG/ML 2 ML VIAL IV PRN ×2 (06:24→13:30)
[2021-10-28] MEDS: PANTOprazole 40 MG TAB PO SCH (06:24)
[2021-10-28] MEDS: HYDROCODONE/ACETAMINOPHEN 7.5/325MG TAB PO PRN (06:24)
[2021-10-28] MEDS: FLUTICASONE PROPIONATE NA SPR 16 GM BTL NAE SCH (07:47)
--- NOTE | 2021-10-28 07:47 | Urology Progress Note ---
Date of Service October 28, 2021 Assessment & Plan (1) Hydronephrosis with renal and ureteral calculus obstruction: Plan: 66yo M admitted with intractable right flank pain secondary to an obstructing 5mm distal right ureteral stone. - POD #1 s/p cystoscopy, right ureteral stent placement. - Pt feeling much better this morning, pain has significantly improved. - Tolerating the ureteral stent with minimal bother. - Afebrile, hemodynamically stable. - Labs reviewed - Wbc 16.84, Creatinine 1.22. - UA on admission not suspicious for infection. - OK for discharge from perspective. - Recommend Tamsulosin, prn Pyridium and prn pain medication for stent management. - Expected clinical course reviewed, all questions answered. - Will arrange outpatient follow-up with our service. - Thank you for allowing us to participate in the acute care of Mr. Brito. Please reconsult us with additional questions, concerns or changes in patient status. Admission and Anticipated Discharge Date Admission Date: October 27, 2021 Subjective Pt examined at bedside this AM. Awake, resting in bed on arrival. Reports he is feeling much better this morning. Pain has significantly improved. Tolerating the stent with minimal bother. Some hematuria and dysuria as expected. Feels he is emptying his bladder well. Tolerating diet. Some mild nausea this morning, no vomiting. No fevers or chills. Review of Systems Constitutional: as per Subjective / HPI Gastrointestinal: as per Subjective / HPI Genitourinary: + as per Subjective / HPI Physical Exam Constitutional: comfortable; no acute distress Respiratory: no respiratory distress and no labored breathing Gastrointestinal (Abdomen): Inspection/Auscultation: abdomen normal to inspection Musculoskeletal: Head/Neck/Chest: normocephalic Neurologic: moves all extremities and awake Psychiatric: A+Ox3, euthymic affect Results & Data ([facility]) Vital Signs (Past 12 Hours) Vital Signs Temp Pulse Resp BP Pulse Ox 10/28/21 04:00 36.7 C 57 L 20 112/71 96 10/27/21 23:03 36.4 C L 57 L 18 100/65 94 10/27/21 20:03 36.7 C 63 18 115/68 96 PG Care Time/CCT Total # of Minutes Spent Total Time Spent with Patient: Total time spent is greater than 50% in coordination of care (as documented) at patient's floor/unit and/or counseling patient: Coding Level of Care Code 02168 Subseq Hosp Care Lvl 2 Diagnoses Hydronephrosis with renal and ureteral calculus obstruction N13.2
[2021-10-28] MEDS: lisinopril 10 MG TAB PO SCH (08:30)
[2021-10-28] MEDS: amLODIPine BESYLATE 5 MG TAB PO SCH (08:30)
[2021-10-28] MEDS ORDERED: MAGNESIUM CITRATE 296 ML/BTL PO STA (08:35)
[2021-10-28] MEDS ORDERED: METOCLOPRAMIDE HCL INJ 5 MG/ML 2 ML VIAL IV ONE (08:36)
[2021-10-28] MEDS ORDERED: POLYETHYLENE (MIRALAX) 17 GM PACK PO STA (08:48)
[2021-10-28 10:12] LABS: Hematocrit (blood only) 44.1 % (42-52); Hemoglobin 15.4 g/dL (14.0-18.0); Mean Corpuscular Hemoglobin 31.5 pg (25-34); Mean Corpuscular Hgb Conc 34.9 g/dL (32-36); Mean Corpuscular Volume 90.2 fL (80-100); Mean Platelet Volume 9.4 fL (7.4-10.4); Platelet Count 253 K/uL (130-400); RDW Coefficient of Variation 13.3 % (11.5-14.5); RDW Standard Deviation 43.4 fL (36.4-46.3); Red Blood Count 4.89 M/uL (4.7-6.1); White Blood Count 16.84 K/uL (4.8-10.8)
[2021-10-28] MEDS ORDERED: MAGNESIUM CITRATE 296 ML/BTL ONE (10:40)
[2021-10-28 10:54] LABS: BUN Creatinine Ratio 20.5 (10-20); Calcium 8.9 mg/dl (8.5-10.1); Creatinine Clr Calc Pharmacy 80.9 ml/min; Est GFR (African American) 71.7 ml/min; Est GFR (Non-African American) 61.8 ml/min; Magnesium 2.2 mg/dl (1.7-2.4); Potassium 4.2 mmol/L (3.5-5.1)
[2021-10-28] MEDS ORDERED: KETOROLAC TROMETHAMINE 15 MG/ML VIAL IV ONE (11:55)
--- NOTE | 2021-10-28 17:45 | Discharge Summary ---
Date of Service October 28, 2021 Admission HPI Per Admitting Provider 66yo M w/ hx of back pain who presents with right kidney stone. The pain started around 9pm. Associated with nausea. Could not control the pain at home. In the ER, required IV pain medication. No dysuria. Never had any prior kidney stones. Reports no fevers/chills, chest pain, shortness of breath, abdominal pain. Principal Diagnosis Right hydronephrosis, kidney stone, status post ureteral stent Discharge Exam Constitutional + acute distress and average body habitus Eyes EOM intact bilaterally; no conjunctival abnormality ENMT external ear and nose normal, oropharynx normal Neck trachea midline, no thyromegaly normal visual inspection Respiratory normal respiratory effort, lungs clear to auscultation no respiratory distress Cardiovascular RRR, no murmur, no edema Gastrointestinal (Abdomen) Inspection/Auscultation: abdomen normal to inspection; abdomen not distended Musculoskeletal no cyanosis or clubbing, extremities motor strength 5/5 Skin no rashes, warm and dry Neurologic moves all extremities and awake Psychiatric Orientation: alert, oriented to person and cooperative Discharge Data Allergies Allergy/AdvReac Type Severity Reaction Status Date / Time pregabalin [From Lyrica CR] Allergy Severe anaphylaxis Verified 10/27/21 10:22 gabapentin Allergy Intermediate Extreme Verified 10/27/21 10:22 nausea and vomitting Consultations 10/27/21 08:20 ED Decision to Admit Stat 10/27/21 12:42 Consult Urology Routine Procedures Performed Operation Date: 10/27/21 09:30 Actual Procedures p RIGHT URETERAL Stent Placement,Cystoscopy, Right Retrograde Pyelogram, RIGHT Ureteroscopy, (Right) - Osiel Faust MD Ordered Studies 10/27/21 [place] retrograde includes kub Routine 10/27/21 06:09 CT abd pelvis wo con Stat Hospital Course (1) Hydronephrosis with renal and ureteral calculus obstruction: 5mm stone near the right UPJ. S/p stent with Dr. Faust on 10/27. - Flomax, pain control - Discussed with urology - No need for abx at this time given clean urine. -Discharged , urology office will call for follow-up (2) Gout: Responded well to prednisone (3) CKD (chronic kidney disease) stage 2, GFR 60-89 ml/min: Baseline Cr ~1.5. Presently at baseline or mildly higher possibly due to right, mild hydronephrosis. - Monitor (4) Lumbar disc disease: Follow with PCP and Pain Management. - Continue home meds (5) Hypertension: - Continue home amlodipine and lisinopril DVT ppx - Early ambulation & discharge Total Time Total Time Spent Total Time Spent (In Minutes): 45 Discharge Plan Discharge Items Patient Disposition: Home - Self-Care Reason For Visit: RIGHT KIDNEY STONE Discharge Diagnosis: kidney stone Activity: Resume your previous activity Lifting: Gradually increase as tolerated Bathing: No limitations Sexual Activity: When tolerated Exercise/Sports: As tolerated Driving/Machine Use: No limitations Weightbearing: Full weightbearing Non-emergency contact: Primary Care Provider and Urologist Call non-emergency contact if: you have any medication questions Follow-up/Referrals: Anish Henry III, CRNP [Primary Care Provider] - 11/08/21 9:20 am Osiel Faust MD [Physician] - (Urology office will call patient with appointment date and time) Diet: Heart Healthy Addtl Attending Provider Instructions: Please avoid constipation, pain medication as needed, Addtl Microphone Operator Provider Instructions: Please call the urology office at [phone] with any questions, concerns or need to reschedule appointments for any reason. We are happy to assist you. While you have a ureteral stent in place: Some discomfort is normal. Certain movements may trigger pain or a feeling that you need to urinate. You may also feel mild soreness or pressure before or during urination. Your urine may be slightly pink or red. This is due to bleeding caused by minor irritation from the stent. This may happen on and off while you have the stent, it is not harmful and is to be expected. Medication to help minimize discomfort or bladder spasms, or to prevent infection may be prescribed. Take this as directed. Drink plenty of fluids to help flush out your urinary tract. How long will you need a stent? The urology office will contact you to arrange a follow-up appointment. When to call [facility] at [phone]: Your urine contains heavy blood clots or you are unable to urinate. You are constantly leaking urine Fever of 101F or higher, chills, nausea, or vomiting Your pain is not relieved with medication The end of the stent comes out of your urethra Pending Studies at Discharge: No Stand-Alone Forms: [facility], Smoking Cessation Medications and DC Order Prescriptions: New oxycodone-acetaminophen [Percocet] 5-325 mg tablet 2 tab PO Q6H PRN (Reason: pain) Qty: 20 RF: 0 polyethylene glycol 3350 [Miralax] 17 gram Powder In Packet 17 g PO DAILY Qty: 20 RF: 0 Continued fentanyl 50 mcg/hr patch 72 hour 1 patch TD Q72H Qty: 10 RF: 0 hydrocodone-acetaminophen 7.5-325 mg tablet 1 tab PO BID PRN (Reason: pain, severe) Qty: 70 RF: 0 albuterol sulfate [Ventolin HFA] 90 mcg/actuation HFA aerosol inhaler See Rx Instructions inhalation .COMPLEX PRN (Reason: shortness of breath or wheezing) Qty: 8.5 RF: 0 amlodipine 5 mg tablet 5 mg PO BID Qty: 180 RF: 3 cyclobenzaprine 10 mg tablet 5 - 10 mg PO TID Qty: 90 RF: 1 fluticasone propionate [Flonase Allergy Relief] 50 mcg/actuation spray,suspension 2 spray intranasal DAILY Qty: 16 RF: 3 lisinopril 10 mg tablet 10 mg PO DAILY Qty: 90 RF: 1 pantoprazole 40 mg tablet,delayed release (DR/EC) 40 mg PO .COMPLEX Qty: 90 RF: 1 prednisone 10 mg tablet See Rx Instructions PO DAILY Qty: 30 RF: 0 colchicine 0.6 mg tablet 0.6 mg PO BID PRN (Reason: Gout Flare) Qty: 30 RF: 1 tamsulosin [Flomax] 0.4 mg capsule 0.4 mg PO HS Qty: 30 RF: 0 oxybutynin chloride [Ditropan XL] 5 mg tablet extended release 24 hr 5 mg PO DAILY Qty: 30 RF: 0 promethazine-DM 6.25-15 mg/5 mL syrup 5 ml PO Q6H PRN (Reason: cough) Qty: 200 RF: 0 famotidine 10 mg Tablet 10 mg PO BID PRN (Reason: Heartburn) RF: 0 Discharge Orders: Discharge Order (Routine); Ordered 10/28/21 Ordered By: Olman Lux Admission Data Admit Date/Time: 10/27/21 08:26 Attending Provider: Olman Lux Admit Provider: Danny Mata Primary Care Provider: Anish Henry III Other Providers: Danny Mata ; Osiel Faust Other Interventions: Discharge Summary Assessment (RN) Last Done: 10/28/21 13:58 Coding Level of Care Code D/C DAY MANAGEMENT >30 MINS Diagnoses Hydronephrosis with renal and ureteral calculus obstruction N13.2 Gout M10.9 CKD (chronic kidney disease) stage 2, GFR 60-89 ml/min N18.2 Lumbar disc disease M51.9 Hypertension I10 Hypertension type: essential hypertension
[2021-10-29] MEDS ORDERED: POLYETHYLENE (MIRALAX) 17 GM PACK PO SCH (09:00)
== END 2021-10-28 15:37 | disposition home or self-care (01) | DRG 661 ==
LOC: ED 05:44 → 3N 08:26 → INTOOBSV 08:26 → SUATTDRO 08:26

== ENCOUNTER 2024-05-25 06:57 | Inpatient (IN) ==
--- NOTE | 2024-05-25 07:37 | Emergency Department Note ---
Impression & Plan Nausea and vomiting ADMIT ED Provider Note HPI: History obtained from patient. The patient is a 69-year-old gentleman with history of coronary artery disease, aortic valve stenosis, history of cardiac arrest in January 2024 currently with [facility], presents the emergency department with a chief complaint of nausea, vomiting, and dizziness. Patient states he experienced the symptoms last night and then this morning when he tried to drink water he had several episodes of vomiting. Patient states he became concerned and therefore came to the ER to be assessed. Patient denies any abdominal pain, he denies any chest pain or shortness of breath. On arrival here to the ED the patient is hypertensive but otherwise hemodynamically stable, he is saturating well on room air on arrival. ROS: - Per HPI Differential Diagnosis: Viral gastroenteritis, diverticulitis, ischemic colitis, small bowel obstruction, critical electrolyte abnormalities to include hyponatremia, hyperkalemia, acute kidney injury/dehydration, posterior circulation stroke, vertigo, arrhythmia, amongst other potential pathologies. *Outpatient medications and allergy history reviewed. PE: General: Alert HEENT: Normocephalic, trachea midline Eyes: Extraocular eye movement is intact, no scleral erythema Pulmonary: Clear to auscultation bilaterally, no wheezing Cardio: Regular rate and rhythm GI: Abdomen is soft to palpation, there is mild tenderness in the mid abdomen to palpation without guarding or rigidity : No suprapubic tenderness MSK: No evidence of trauma or malformation of the extremities, no edema Skin: No evidence of rash Neuro: Alert, no focal deficits, no ataxia on [id number] testing bilaterally, symmetrical facial movements are appreciated, equal bilateral wet cotton feeder strength Psychiatric: Cooperative INDEPENDENT INTERPRETATIONS: rail layer: (As interpreted by myself): - An order was placed for continuous cardiac monitoring - Patient was noted to be in sinus rhythm with a rate of 58 EKG: (As interpreted by myself): Rate: 52 Rhythm: Sinus bradycardia Intervals: Within normal limits ST changes: No ST elevation Time: 0710 Interventions provided in ED: -IV fluid bolus, meclizine Medical Decision Making: IV was established and lab work obtained, patient was placed on master plumber. Lab work shows no leukocytosis, hemoglobin is normal, platelet count is normal, CMP does not show any evidence of any critical findings. Troponin is negative. EKG per my interpretation shows sinus rhythm without any evidence of any high degree heart block or acute ischemic changes. Urinalysis does not show any evidence of blood or infection, viral panel testing was obtained and is negative. CT imaging of the abdomen pelvis was obtained that does not show any evidence of any acute abnormalities per the interpreting radiologist. Given the patient's ongoing dizziness on my reassessment, CT angiography of the head and neck were ordered. CT angiography of the head and neck did not show any evidence of any large vessel occlusion or critical pathology per the interpreting radiologist. On my reassessment, patient states he continues to have some dizziness, he was ambulated and did well however he stated he did have a sensation as if he was falling off to the side although this was not noted by the cnc technician. Given the patient's ongoing symptoms, I feel that he should be admitted to the hospital. He may benefit from observation and possibly MRI imaging of the head to rule out posterior circulation stroke. I discussed this with the patient and with his spouse at the bedside, they are in agreement. Case was discussed with the on- call hospitalist, Dr. Tai, the patient was placed for admission in stable condition. Consultants/Discussions held with other healthcare providers: -Hospitalist, Dr. Tai Disposition discussion held by myself with: -Patient and patient's at the bedside Diagnosis: 1. Vertigo, acute 2. Nausea and vomiting, acute 3. History of ischemic cardiomyopathy Disposition: Admission Krunal Valencia DO Emergency Medicine Past Med/Surg History Problem List (Updated 05/25/24 @ 13:38 by Krunal Valencia DO) Nausea and vomiting (Acute) Transaminitis (Acute) Decreased cardiac ejection fraction Severe aortic valve stenosis (Chronic) Opioid dependence Hyperalgesia Nephrolithiasis, uric acid Lumbar radicular pain Low TSH level (Chronic) Lumbar disc disease (Chronic) Dyslipidemia Gout Chronic pain (Chronic) GERD without esophagitis (Chronic) Hypertension (Chronic) Medical History (Updated 05/25/24 @ 13:38 by Krunal Valenica DO) Cardiac arrest with ventricular fibrillation Gout Hydronephrosis with renal and ureteral calculus obstruction Edema of right ankle Right ankle pain Acute kidney injury Surgical History S/P ureteral stent placement History of lumbar surgery once or twice? per patient History of cervical spinal surgery x2 Family History Denies family history of Ovarian cancer Prostate cancer Myocardial infarction Breast cancer Colorectal cancer Social History Smoking Status: Former smoker Tobacco Type: Cigarettes Age Started Using Tobacco: 18; Age Quit Using Tobacco: 35; packs per day: 4; Second Hand Exposure: No; Do You Dip or Chew Tobacco: No; Hx Alcohol Use: No Hx Substance Use: No Preferred Language: Gambian Communication Ability: Effective Visual Impairment: No Limitations Hearing Ability: Normal Railroad Track Repair Supervisor Required: No Beliefs That Will Affect Care: None marital status: Current Living Situation: Spouse current occupational status: retired How many Children do You have: 2 Feels Safe at Home: Yes Childhood Exposure to Second-Hand Smoke: No Diet: regular caffeine: No during the past year weight has: remained stable Dental Care, Regularly: Yes Physical Activity Frequency: Daily Seatbelt Use: always Sunscreen Use: No Assistive Devices: Cane, Denture - Upper and Glasses Allergies Allergies Allergy/AdvReac Type Severity Reaction Status Date / Time pregabalin [From Abraham TOM] Allergy Severe anaphylaxis Verified 05/25/24 09:19 gabapentin Allergy Intermediate Extreme Verified 05/25/24 09:19 nausea and vomitting allopurinol AdvReac Severe Facial Verified 05/25/24 09:19 swelling Home Meds Home Medications Medication Instructions Recorded Confirmed aspirin 81 mg tablet,delayed 81 mg PO DAILY 03/03/24 05/25/24 release clopidogrel 75 mg tablet (Plavix) 75 mg PO DAILY 03/10/24 05/25/24 metoprolol succinate 25 mg 12.5 mg PO DAILY 04/02/24 05/25/24 tablet,extended release 24 hr midodrine 10 mg tablet 10 mg PO TID 05/25/24 05/25/24 Results & Data (ED) Vital Signs Vital Signs - 24 hr 05/25/24 07:08 05/25/24 07:12 05/25/24 07:14 Temperature 35.8 C L Temperature Source Skin Pulse Rate - Lying Pulse Rate - Sitting Pulse Rate - Standing Pulse Rate 50 L 52 L 51 L Pulse Rate [Exercises] Pulse Rate [Right Finger] Pulse Rate from SpO2 Sensor 52 L Pulse Rhythm [Right Finger] Pulse Strength [Right Finger] Respiratory Rate 24 26 H Respiratory Rate [Exercises] Respiratory Effort / Characteristics Non-Labored Spontaneous Respiratory Depth Respiratory Pattern Regular Blood Pressure - Lying Blood Pressure - Sitting Blood Pressure- Standing Blood Pressure 162/87 H 162/87 H Blood Pressure [Right Arm] Blood Pressure Mean 112 112 Blood Pressure Mean [Right Arm] Blood Pressure Position [Right Arm] Pulse Oximetry 99 99 Pulse Oximetry [Exercises] Oxygen Delivery Method Room Air Room Air Sepsis Recent Fever Within 48 Hours No Sepsis New/Unexplained Change in Mental Status N/A Sepsis Action Taken by Nursing No Action Required 05/25/24 07:36 05/25/24 08:03 05/25/24 09:03 Temperature Temperature Source Pulse Rate - Lying Pulse Rate - Sitting Pulse Rate - Standing Pulse Rate 50 L 50 L 46 L Pulse Rate [Exercises] Pulse Rate [Right Finger] Pulse Rate from SpO2 Sensor 50 L 48 L 46 L Pulse Rhythm [Right Finger] Pulse Strength [Right Finger] Respiratory Rate 20 14 18 Respiratory Rate [Exercises] Respiratory Effort / Characteristics Respiratory Depth Respiratory Pattern Blood Pressure - Lying Blood Pressure - Sitting Blood Pressure- Standing Blood Pressure 141/86 H 131/85 162/80 H Blood Pressure [Right Arm] Blood Pressure Mean 104 100 107 Blood Pressure Mean [Right Arm] Blood Pressure Position [Right Arm] Pulse Oximetry 96 95 96 Pulse Oximetry [Exercises] Oxygen Delivery Method Room Air Room Air Room Air Sepsis Recent Fever Within 48 Hours Sepsis New/Unexplained Change in Mental Status Sepsis Action Taken by Nursing 05/25/24 09:30 05/25/24 09:46 05/25/24 09:52 Temperature Temperature Source Pulse Rate - Lying Pulse Rate - Sitting Pulse Rate - Standing Pulse Rate Pulse Rate [Exercises] 56 L Pulse Rate [Right Finger] Pulse Rate from SpO2 Sensor Pulse Rhythm [Right Finger] Pulse Strength [Right Finger] Respiratory Rate Respiratory Rate [Exercises] 20 Respiratory Effort / Characteristics Respiratory Depth Respiratory Pattern Blood Pressure - Lying Blood Pressure - Sitting Blood Pressure- Standing Blood Pressure 156/86 H 147/110 H Blood Pressure [Right Arm] Blood Pressure Mean 112 127 Blood Pressure Mean [Right Arm] Blood Pressure Position [Right Arm] Pulse Oximetry Pulse Oximetry [Exercises] 99 Oxygen Delivery Method Room Air Sepsis Recent Fever Within 48 Hours Sepsis New/Unexplained Change in Mental Status Sepsis Action Taken by Nursing 05/25/24 10:00 05/25/24 10:30 05/25/24 11:00 Temperature Temperature Source Pulse Rate - Lying Pulse Rate - Sitting Pulse Rate - Standing Pulse Rate 48 L 51 L 49 L Pulse Rate [Exercises] Pulse Rate [Right Finger] Pulse Rate from SpO2 Sensor 51 L 51 L Pulse Rhythm [Right Finger] Pulse Strength [Right Finger] Respiratory Rate 18 12 16 Respiratory Rate [Exercises] Respiratory Effort / Characteristics Respiratory Depth Respiratory Pattern Blood Pressure - Lying Blood Pressure - Sitting Blood Pressure- Standing Blood Pressure 139/87 130/78 130/78 Blood Pressure [Right Arm] Blood Pressure Mean 114 95 95 Blood Pressure Mean [Right Arm] Blood Pressure Position [Right Arm] Pulse Oximetry 97 99 96 Pulse Oximetry [Exercises] Oxygen Delivery Method Room Air Room Air Room Air Sepsis Recent Fever Within 48 Hours Sepsis New/Unexplained Change in Mental Status Sepsis Action Taken by Nursing 05/25/24 11:05 05/25/24 11:30 05/25/24 12:00 Temperature Temperature Source Pulse Rate - Lying Pulse Rate - Sitting Pulse Rate - Standing Pulse Rate 48 L 52 L 44 L Pulse Rate [Exercises] Pulse Rate [Right Finger] Pulse Rate from SpO2 Sensor 45 L Pulse Rhythm [Right Finger] Pulse Strength [Right Finger] Respiratory Rate 20 14 Respiratory Rate [Exercises] Respiratory Effort / Characteristics Respiratory Depth Respiratory Pattern Blood Pressure - Lying Blood Pressure - Sitting Blood Pressure- Standing Blood Pressure 141/63 H 155/87 H Blood Pressure [Right Arm] Blood Pressure Mean 107 109 Blood Pressure Mean [Right Arm] Blood Pressure Position [Right Arm] Pulse Oximetry 93 96 Pulse Oximetry [Exercises] Oxygen Delivery Method Room Air Room Air Sepsis Recent Fever Within 48 Hours Sepsis New/Unexplained Change in Mental Status Sepsis Action Taken by Nursing 05/25/24 12:49 05/25/24 13:00 05/25/24 14:00 Temperature Temperature Source Pulse Rate - Lying 47 L Pulse Rate - Sitting 56 L Pulse Rate - Standing 59 L Pulse Rate 54 L Pulse Rate [Exercises] Pulse Rate [Right Finger] 49 L Pulse Rate from SpO2 Sensor 47 L Pulse Rhythm [Right Finger] Regular Pulse Strength [Right Finger] Normal Respiratory Rate 25 H 18 Respiratory Rate [Exercises] Respiratory Effort / Characteristics Non-Labored Spontaneous Respiratory Depth Normal Respiratory Pattern Regular Blood Pressure - Lying 152/81 H Blood Pressure - Sitting 136/84 Blood Pressure- Standing 137/84 Blood Pressure 173/94 H Blood Pressure [Right Arm] 175/92 H Blood Pressure Mean 120 Blood Pressure Mean [Right Arm] 119 Blood Pressure Position [Right Arm] Sitting Pulse Oximetry 99 96 Pulse Oximetry [Exercises] Oxygen Delivery Method Room Air Room Air Sepsis Recent Fever Within 48 Hours Sepsis New/Unexplained Change in Mental Status Sepsis Action Taken by Nursing Laboratory Data 05/25/24 07:19 05/25/24 07:19 Lab Results 05/25/24 05/25/24 05/25/24 Range/Units 07:19 08:19 10:45 WBC 7.12 (4.8-10.8) K/ul RBC 5.09 (4.70-6.10) M/uL Hgb 16.1 (14.0-18.0) g/dl Hct 47.1 (42.0-52.0) % MCV 92.5 (80.0-100.0) fL MCH 31.6 (25.0-34.0) pg MCHC 34.2 (32.0-36.0) g/dL RDW Std Deviation 44.1 (36.4-46.3) fL RDW Coeff of Dora 12.9 (11.5-14.5) % Plt Count 203 (130-400) K/uL MPV 10.0 (9.4-12.4) fL Immature Gran % (Auto) 0.3 % Neut % (Auto) 54.0 % Lymph % (Auto) 26.4 % Armstrong % (Auto) 12.9 % Eos % (Auto) 4.9 % Baso % (Auto) 1.5 % Neut # (Auto) 3.84 (1.40-6.50) K/uL Lymph # (Auto) 1.88 (1.20-3.40) K/uL Armstrong # (Auto) 0.92 H (0.11-0.59) K/uL Eos # (Auto) 0.35 (0.00-0.50) K/uL Baso # (Auto) 0.11 (0.00-0.20) K/uL Immature Gran # (Auto) 0.02 (0.01-0.20) K/uL PT 10.8 (9.0-12.0) Seconds INR 1.0 (0.9-1.1) Sodium 140 (136-145) mmol/L Potassium 3.7 (3.5-5.1) mmol/L Chloride 105 (98-107) mmol/L Carbon Dioxide 29 (21-32) mmol/L Anion Gap 6 (3-11) BUN 13 (6-23) mg/dl Creatinine 0.99 (0.6-1.4) mg/dl Est Cr Clr Drug Dosing 88.8 ml/min eGFR 82.98 BUN/Creatinine Ratio 13.1 (10-20) Glucose 97 (70-99(Fasting)) mg/dl Calcium 9.4 (8.6-10.3) mg/dl Total Bilirubin 0.6 (0.2-1.0) mg/dl AST 23 (13-39) U/L ALT 21 (7-52) U/L Alkaline Phosphatase 69 (34-104) U/L Troponin I High Sens 11.0 (0-20) pg/ml Total Protein 7.1 (6.0-8.3) gm/dl Albumin 4.0 (3.4-5.0) gm/dl Globulin 3.1 (2.5-4.0) gm/dl Albumin/Globulin Ratio 1.3 (0.9-2) Lipase 61 (11-82) U/L Urine Color Yellow Urine Appearance Clear (Clear) Urine pH 6.5 (4.5-7.5) Ur Specific [place] 1.027 (1.000-1.030) Urine Protein Negative (Negative) Urine Glucose (UA) Negative (Negative) Urine Ketones Negative (Negative) Urine Blood Negative (Negative) Urine Nitrite Negative (Negative) Urine Bilirubin Negative (Negative) Urine Urobilinogen Negative (Negative) Ur Leukocyte Esterase Negative (Negative) Adenovirus (PCR) Not Detected (NotDetected) B. pertussis DNA (PCR) Not Detected (NotDetected) B.parapertussis DNA PCR Not Detected (NotDetected) C. pneumoniae DNA (PCR) Not Detected (NotDetected) Coronavirus OC43 (PCR) Not Detected (NotDetected) Coronavirus HKU1 (PCR) Not Detected (NotDetected) Coronavirus 229E (PCR) Not Detected (NotDetected) SARS-CoV-2 (PCR) Not Detected (NotDetected) Coronavirus NL63 (PCR) Not Detected (NotDetected) Human Metapneumovir PCR Not Detected (NotDetected) Influenza Type A (PCR) Not Detected (NotDetected) Influenza Type B (PCR) Not Detected (NotDetected) M. pneumoniae (PCR) Not Detected (NotDetected) Parainfluenza 1 (PCR) Not Detected (NotDetected) Parainfluenza 2 (PCR) Not Detected (NotDetected) Parainfluenza 3 (PCR) Not Detected (NotDetected) Parainfluenza 4 (PCR) Not Detected (NotDetected) RSV (PCR) Not Detected (NotDetected) Entero/Rhino (PCR) Not Detected (NotDetected) Administered Medications Discontinued Medications Sodium Chloride (Nss) 1,000 mls @ 999 mls/hr IV .Q1H1M ONE Stop: 05/25/24 08:35 Last Infusion: 05/25/24 08:59 Dose: Infused Documented By: Admin: 05/25/24 07:53 Dose: 999 mls/hr Documented By: DAVIAN Ioversol (Optiray 320 100ml) 94 ml IV ONCE ONE Stop: 05/25/24 07:38 Last Admin: 05/25/24 07:38 Dose: 94 ml Documented By: ABDON Ioversol (Optiray 320 125ml) 112 ml IV ONCE ONE Stop: 05/25/24 10:37 Last Admin: 05/25/24 10:37 Dose: 112 ml Documented By: ABDON Meclizine HCl (Meclizine Hcl 25 Mg Tab) 25 mg PO NOW STA Stop: 05/25/24 09:55 Last Admin: 05/25/24 10:08 Dose: 25 mg Documented By: [facility] [place] Data Radiologist's Impression: Abdomen/Pelvis CT 05/25/24 07:35 CT abd pelvis IV con only CLINICAL HISTORY: N/V TECHNIQUE: Helical axial images of the abdomen and pelvis were obtained and displayed. Automated dose lowering techniques and/or adjustment according to patient size were utilized for this exam. This exam was performed with intravenous contrast. CT DOSE: 1453.4 mGy.cm COMPARISON: Comparison is made to CT abdomen pelvis 10/27/2021 FINDINGS: Lower chest: No acute abnormality. Liver: Unremarkable. No focal lesions are seen. Gallbladder and biliary tree: No calcified gallstones. Normal caliber wall. No intra- or extrahepatic biliary ductal dilation. Pancreas: Unremarkable, no focal lesions. Spleen: Unremarkable. Adrenals: Unremarkable. Kidneys and ureters: Renal cysts are seen. Bladder: Unremarkable. Reproductive organs: Unremarkable. Bowel: The appendix is normal. Lymph nodes Retroperitoneal: Unremarkable. Pelvic: Unremarkable. Mesenteric: Unremarkable. Peritoneum: Normal. Vessels: Atherosclerotic calcifications are seen. Abdominal wall: Unremarkable. Bones: Posterior fixation hardware spans L4-S1. Degenerative changes are seen in the spine. IMPRESSION: No acute abnormalities to explain dizziness and nausea. ACT 112: Negative or not required by law. Electronically signed by: Ld Teran M.D. 05/25/2024 9:23 AM Head CTA 05/25/24 09:54 CT angio neck with con, CT angio head wo/w CLINICAL HISTORY: dizzy TECHNIQUE: Contiguous axial CT images of the head were acquired from the base of the skull to the vertex without intravenous contrast administration. CT angiography of the head and neck was performed following intravenous administration of iodinated contrast. Coronal and sagittal MIPS were obtained from the axial data set and were submitted for review. Automated dose lowering techniques and/or adjustment according to patient size were utilized for this examination. All measurements were calculated based on NASCET criteria. CT DOSE: 1185.66 mGy.cm Comparison: None available at the time of this dictation. FINDINGS: CT head: There is no acute intracranial hemorrhage or evidence of acute territorial infarction. No shift of the midline structures, mass effect, or extra-axial abnormalities are shown. Paraseptal emphysematous changes are seen. CTA Neck: A 3 vessel aortic arch is shown. There is no significant atherosclerotic plaque in the aortic arch or the origins of the innominate, left common carotid, and left subclavian arteries. The common carotid, external carotid, cervical segments of the internal carotid arteries, and the cervical segments of the vertebral arteries are patent without hemodynamically significant stenosis. The left vertebral artery is dominant. CTA Head: The anterior and posterior cerebral circulations are patent. No hemodynamically significant stenosis, aneurysm, dissection, or arteriovenous malformation is shown. IMPRESSION: 1. No acute intracranial hemorrhage, evidence of acute territorial infarction, or other acute intracranial disease process. 2. No occlusion, hemodynamically significant stenosis, or dissection in the major cervical arteries. 3. No occlusion, hemodynamically significant stenosis, aneurysm, dissection, or arteriovenous malformation in the major intracranial arteries. Assessment of stenosis of the internal carotid arteries is based on NASCET criteria. ACT 112: Negative or not required by law. Electronically signed by: Ld Teran M.D. 05/25/2024 11:02 AM Neck CTA 05/25/24 09:54 CT angio neck with con, CT angio head wo/w CLINICAL HISTORY: dizzy TECHNIQUE: Contiguous axial CT images of the head were acquired from the base of the skull to the vertex without intravenous contrast administration. CT angiography of the head and neck was performed following intravenous administration of iodinated contrast. Coronal and sagittal MIPS were obtained from the axial data set and were submitted for review. Automated dose lowering techniques and/or adjustment according to patient size were utilized for this examination. All measurements were calculated based on NASCET criteria. CT DOSE: 1185.66 mGy.cm Comparison: None available at the time of this dictation. FINDINGS: CT head: There is no acute intracranial hemorrhage or evidence of acute territorial infarction. No shift of the midline structures, mass effect, or extra-axial abnormalities are shown. Paraseptal emphysematous changes are seen. CTA Neck: A 3 vessel aortic arch is shown. There is no significant atherosclerotic plaque in the aortic arch or the origins of the innominate, left common carotid, and left subclavian arteries. The common carotid, external carotid, cervical segments of the internal carotid arteries, and the cervical segments of the vertebral arteries are patent without hemodynamically significant stenosis. The left vertebral artery is dominant. CTA Head: The anterior and posterior cerebral circulations are patent. No hemodynamically significant stenosis, aneurysm, dissection, or arteriovenous malformation is shown. IMPRESSION: 1. No acute intracranial hemorrhage, evidence of acute territorial infarction, or other acute intracranial disease process. 2. No occlusion, hemodynamically significant stenosis, or dissection in the major cervical arteries. 3. No occlusion, hemodynamically significant stenosis, aneurysm, dissection, or arteriovenous malformation in the major intracranial arteries. Assessment of stenosis of the internal carotid arteries is based on NASCET criteria. ACT 112: Negative or not required by law. Electronically signed by: Ld Teran M.D. 05/25/2024 11:02 AM Discharge Plan Visit Data Chief Complaint: Vomiting Stated Complaint: HIGH BP, DIZZY, VOMITING, ED Provider: Krunal Valencia Discharge Problem: Nausea and vomiting Forms Stand Alone Forms: [facility] Prescriptions Prescriptions: No Action metoprolol succinate 25 mg tablet extended release 24 hr 12.5 mg PO DAILY clopidogrel [Plavix] 75 mg tablet 75 mg PO DAILY aspirin 81 mg tablet,delayed release (DR/EC) 81 mg PO DAILY midodrine 10 mg tablet 10 mg PO TID Referrals Referrals: Anish Henry III, CRNP [Primary Care Provider] -
[2024-05-25 07:38] LABS: Basophils # (auto) 0.11 K/uL (0.00-0.20); Basophils % (auto) 1.5 %; Eosinophils # (auto) 0.35 K/uL (0.00-0.50); Eosinophils % (auto) 4.9 %; Hematocrit (blood only) 47.1 % (42.0-52.0); Hemoglobin 16.1 g/dl (14.0-18.0); Immature Granulocytes # (auto) 0.02 K/uL (0.01-0.20); Immature Granulocytes % (auto) 0.3 %; Lymphocytes # (auto) 1.88 K/uL (1.20-3.40); Lymphocytes % (auto) 26.4 %; Mean Corpuscular Hemoglobin 31.6 pg (25.0-34.0); Mean Corpuscular Hgb Conc 34.2 g/dL (32.0-36.0); Mean Corpuscular Volume 92.5 fL (80.0-100.0); Monocytes # (auto) 0.92 K/uL (0.11-0.59); Monocytes % (auto) 12.9 %; Neutrophils # (auto) 3.84 K/uL (1.40-6.50); Platelet Count 203 K/uL (130-400); RDW Coefficient of Variation 12.9 % (11.5-14.5); RDW Standard Deviation 44.1 fL (36.4-46.3); Red Blood Count 5.09 M/uL (4.70-6.10); White Blood Count 7.12 K/ul (4.8-10.8)
[2024-05-25] MEDS: OPTIRAY 320 100ml IV ONE (07:38)
[2024-05-25] MEDS: SODIUM CHLORIDE 0.9% 1,000 ML IV ONE (07:53)
[2024-05-25 07:54] LABS: Albumin Globulin Ratio 1.3 (0.9-2); BUN Creatinine Ratio 13.1 (10-20); Bilirubin,Total 0.6 mg/dl (0.2-1.0); Calcium 9.4 mg/dl (8.6-10.3); Creatinine Clr Calc Pharmacy 88.8 ml/min; Globulin 3.1 gm/dl (2.5-4.0); Potassium 3.7 mmol/L (3.5-5.1); Total Protein 7.1 gm/dl (6.0-8.3)
[2024-05-25 08:13] LABS: Prothrombin Time 10.8 Seconds (9.0-12.0)
--- NOTE | 2024-05-25 09:25 | CT Scan Report ---
CT abd pelvis IV con only CLINICAL HISTORY: N/V TECHNIQUE: Helical axial images of the abdomen and pelvis were obtained and displayed. Automated dose lowering techniques and/or adjustment according to patient size were utilized for this exam. This e xam was performed with intravenous contrast. CT DOSE: 1453.4 mGy.cm COMPARISON: Comparison is made to CT abdomen pelvis 10/27/2021 FINDINGS: Lower chest: No acute abnormality. Liver: Unremarkable. No focal lesions are seen. Gallbladder and biliary tree: No calcified gallstones. Normal caliber wall. No intra- or extrahepatic biliary ductal dilation. Pancreas: Unremarkable, no focal lesions. Spleen: Unremarkable. Adrenals: Unremarkable. Kidneys and ureters: Renal cysts are seen. Bladder: Unremarkable. Reproductive organs: Unremarkable. Bowel: The appendix is normal. Lymph nodes Retroperitoneal: Unremarkable. Pelvic: Unremarkable. Mesenteric: Unremarkable. Peritoneum: Normal. Vessels: Atherosclerotic calcifications are seen. Abdominal wall: Unremarkable. Bones: Posterior fixation hardware spans L4-S1. Degenerative changes are seen in the spine. IMPRESSION: No acute abnormalities to explain dizziness and nausea. ACT 112: Negative or not required by law. Electronically signed by: Ld Teran M.D. 05/25/2024 9:23 AM
[2024-05-25 09:27] LABS: Adenovirus PCR Not Detected (NotDetected); Bordetella parapertussis PCR Not Detected (NotDetected); Bordetella pertussis PCR Not Detected (NotDetected); Chlamydia pneumoniae PCR Not Detected (NotDetected); Coronavirus 229E PCR Not Detected (NotDetected); Coronavirus CoV-2 (COVID19)PCR Not Detected (NotDetected); Coronavirus HKU1 PCR Not Detected (NotDetected); Coronavirus NL63 PCR Not Detected (NotDetected); Coronavirus OC43PCR Not Detected (NotDetected); Human Metapneumovirus PCR Not Detected (NotDetected); Influenza A PCR Not Detected (NotDetected); Influenza B PCR Not Detected (NotDetected); Mycoplasma pneumoniae PCR Not Detected (NotDetected); Parainfluenza Virus 1 PCR Not Detected (NotDetected); Parainfluenza Virus 2 PCR Not Detected (NotDetected); Parainfluenza Virus 3 PCR Not Detected (NotDetected); Parainfluenza Virus 4 PCR Not Detected (NotDetected); Respiratory Syncytial VirusPCR Not Detected (NotDetected); Rhinovirus/Enterovirus PCR Not Detected (NotDetected)
[2024-05-25] MEDS: MECLIZINE HCL 25 MG TAB PO STA ×2 (10:08→16:43)
--- NOTE | 2024-05-25 10:22 | Electrocardiogram Report ---
Test Reason : Blood Pressure : */* mmHG Vent. Rate : 52 BPM Atrial Rate : 52 BPM P-R Int : 170 ms QRS Dur : 102 ms QT Int : 470 ms P-R-T Axes : 60 -48 6 degrees QTcB Int : 437 ms Sinus bradycardia Left anterior fascicular block Moderate voltage criteria for LVH, may be normal variant ( R in aVL , Anton product ) Septal infarct , age undetermined Abnormal ECG When compared with ECG of 15-Oct-2023 15:30, (unconfirmed) Left anterior fascicular block is now Present Septal infarct is now Present Confirmed by Emmanuelle Chase (Adelina) on 05/25/2024 10:22:29 AM Referred By: REFERRED SELF Confirmed By: Emmanuelle Chase
[2024-05-25] MEDS: OPTIRAY 320 125ml IV ONE (10:37)
--- NOTE | 2024-05-25 11:05 | CT Scan Report ---
CT angio neck with con, CT angio head wo/w CLINICAL HISTORY: dizzy TECHNIQUE: Contiguous axial CT images of the head were acquired from the base of the skull to the sunita deyvi without intravenous contrast administration. CT angiography of the head and neck was performed f ollowing intravenous administration of iodinated contrast. Coronal and sagittal MIPS were obtained fr om the axial data set and were submitted for review. Automated dose lowering techniques and/or adjus tment according to patient size were utilized for this examination. All measurements were calculated based on NASCET criteria. CT DOSE: 1185.66 mGy.cm Comparison: None available at the time of this dictation. FINDINGS: CT head: There is no acute intracranial hemorrhage or evidence of acute territorial infarction. No sh ift of the midline structures, mass effect, or extra-axial abnormalities are shown. Paraseptal emphysematous changes are seen. CTA Neck: A 3 vessel aortic arch is shown. There is no significant atherosclerotic plaque in the aor tic arch or the origins of the innominate, left common carotid, and left subclavian arteries. The co mmon carotid, external carotid, cervical segments of the internal carotid arteries, and the cervical segments of the vertebral arteries are patent without hemodynamically significant stenosis. The left vertebral artery is dominant. CTA Head: The anterior and posterior cerebral circulations are patent. No hemodynamically significan t stenosis, aneurysm, dissection, or arteriovenous malformation is shown. IMPRESSION: 1. No acute intracranial hemorrhage, evidence of acute territorial infarction, or other acute intrac ranial disease process. 2. No occlusion, hemodynamically significant stenosis, or dissection in the major cervical arteries. 3. No occlusion, hemodynamically significant stenosis, aneurysm, dissection, or arteriovenous malfor mation in the major intracranial arteries. Assessment of stenosis of the internal carotid arteries is based on NASCET criteria. ACT 112: Negative or not required by law. Electronically signed by: Ld Teran M.D. 05/25/2024 11:02 AM
[2024-05-25 11:17] LABS: Appearance Urine Clear (Clear); Bilirubin Urine Negative (Negative); Blood Urine Negative (Negative); Color Urine Yellow; Glucose Urine UA Negative (Negative); Ketones Urine Negative (Negative); Leukocyte Esterase Urine Negative (Negative); Nitrite Urine Negative (Negative); Protein Urine Negative (Negative); Specific Gravity Urine 1.027 (1.000-1.030); Urobilinogen Urine Negative (Negative); pH Urine 6.5 (4.5-7.5)
--- NOTE | 2024-05-25 11:47 | History & Physical Report ---
Date of Service May 25, 2024 Assessment & Plan (1) Dizziness: (2) Nausea and vomiting: (3) Aortic stenosis: (4) CAD (coronary artery disease), lummi coronary artery: (5) Nonischemic cardiomyopathy: Plan This is a 69-year-old male with a complex medical history of a V-fib arrest in 01/2024 and nonischemic CM (with EF 15% recovered to 50%) currently wearing LifeVest, CAD s/p ramus intermedius stent 01/2024, RA, moderate aortic stenosis, ?orthostasis, HL, gout, fatty liver, who presents to the ER with 1 day of dizziness with N/V. Denies diarrhea. No shocks from his LifeVest. He reports when he laid down in his bed the day before admission, he immediately got the "room spins" but went to sleep. When he woke up the next morning, he continued to have the room spinning around him and he had difficulty walking to the bathroom. No focal weakness but feels generally weak. Denies chest pains. He sort of feels a little bit lightheaded when he gets up but he does have a known history of orthostasis and is on midodrine. He had multiple episodes of N/V but that now seems to be improved. #Dizziness/N/V Presents with dizziness like room spinning x 1 day with associated N/V. In the ER, he had a CT of the head and a CT angiogram of the head and neck which were normal. He was in sinus bradycardia with normal blood pressures and orthostatics had a slight drop by about 15 points but were not floridly positive. All his other lab work was normal. The patient was given 1 dose of meclizine and IV fluids prior to admission and this seemed to help somewhat. He is severely claustrophobic and reports he has tried to do MRIs with Ativan in the past and he "went nuts" in the scanner. He reports he would have to go under general anesthesia to get an MRI of the brain. Suspect likely vertigo. Would be ideal to rule out stroke but not able to get MRI. His LifeVest has not gone off and I do not suspect ventricular arrhythmia. Troponin negative x 1 -Admit to PCU for arrhythmia monitoring given complex cardiac history -Repeat troponin -Scheduled meclizine 25 Mg p.o. 3 times daily -Zofran as needed for nausea -Consult neurology-appreciate recommendations-did discuss with on-call Dr. Stanford on the phone on 05/25 who recommended trying to convince patient to get at least diffusion and FLAIR images with MRI with premedication with Valium but patient declines to do this. I do not think we need to put him under general anesthesia to get an MRI if symptoms resolved by tomorrow. Regardless he is on dual antiplatelet therapy which would treat for TIA or stroke -Continue home midodrine 10 Mg 3 times daily for ongoing mild orthostasis -Follow CBC, CMP, magnesium in the morning #Nonischemic CM/history of V-fib arrest/orthostasis Had V-fib arrest in 01/2024. Had cardiac cath with stent placed in ramus intermedius which was not thought to be the culprit of his severe cardiomyopathy with EF 15%. He has been wearing a LifeVest since then but most recent echo as per scanned in reports from 03/2024 shows improvement in EF to 50%. He has been on Toprol XL and follows with Dr. Jose of cardiology in [place]. He was placed on midodrine at the time of discharge from there but he has no idea why- suspect orthostasis and/hypotension with need to continue on Toprol XL. He had been on amiodarone but this was also discontinued in 03/2024 for severe elevation of LFTs -Monitor on telemetry -Consult cardiology for further input -Continue Toprol-XL with hold parameters, continue midodrine -Awaiting cardiac MRI as outpatient, needs to be scheduled with general anesthesia #CAD/moderate aortic stenosis With stent in the ramus intermedius in 01/2024, no acute issues. His statin was discontinued in 03/2024 for severe elevation of LFTs -Continue aspirin, Plavix #Rheumatoid arthritis Currently off his leflunomide due to recent elevation in LFTs which may have been from shock liver from previous cardiac arrest versus amiodarone or statin induced liver injury Follows with rheumatology in [place] DVT prophylaxis-Lovenox SQ, SCDs Disposition-admit to PCU, PT/OT consulted History of Present Illness Chief Complaint: Dizziness Primary Care Provider: Anish Henry, III, WELFARE SPECIALIST This is a 69-year-old male with a complex medical history of a V-fib arrest in 01/2024 currently wearing LifeVest with nonischemic cardiomyopathy with EF 15% now recovered to 55% as per patient, CAD s/p ramus intermedius stent 01/2024, RA, moderate aortic stenosis, ?orthostasis, HL, gout, fatty liver, who presents to the ER with 1 day of dizziness with N/V. Denies diarrhea. No shocks from his LifeVest. He reports when he laid down in his bed last evening, he immediately got the "room spins" but went to sleep. When he woke up this morning, he continued to have the room spinning around him and he had difficulty walking to the bathroom. No focal weakness but feels generally weak. Denies chest pains. He sort of feels a little bit lightheaded when he gets up but he does have a known history of orthostasis and is on midodrine. He had multiple episodes of N/V but that now seems to be improved. In the ER, he had a CT of the head and a CT angiogram of the head and neck which were normal. He was in sinus bradycardia with normal blood pressures and orthostatics had a slight drop by about 15 points but were not floridly positive. All his other lab work was normal. The patient was given 1 dose of meclizine and IV fluids prior to admission and this seemed to help somewhat. He is severely claustrophobic and reports he has tried to do MRIs with Ativan in the past and he "went nuts" in the scanner. He reports he would have to go under general anesthesia to get an MRI of the brain. Allergies Allergy/AdvReac Type Severity Reaction Status Date / Time pregabalin [From Abraham TOM] Allergy Severe anaphylaxis Verified 05/25/24 09:19 gabapentin Allergy Intermediate Extreme Verified 05/25/24 09:19 nausea and vomitting allopurinol AdvReac Severe Facial Verified 05/25/24 09:19 swelling Home Medications Medication Instructions Recorded Confirmed Type aspirin 81 mg tablet,delayed 81 mg PO DAILY 03/03/24 05/25/24 History release clopidogrel 75 mg tablet (Plavix) 75 mg PO DAILY 03/10/24 05/25/24 History metoprolol succinate 25 mg 12.5 mg PO DAILY 04/02/24 05/25/24 History tablet,extended release 24 hr midodrine 10 mg tablet 10 mg PO TID 05/25/24 05/25/24 History Past Med/Surg History Problem List CAD (coronary artery disease), lummi coronary artery Dizziness Nonischemic cardiomyopathy Aortic stenosis Nausea and vomiting (Acute) Transaminitis (Acute) Decreased cardiac ejection fraction Opioid dependence Hyperalgesia Nephrolithiasis, uric acid Lumbar radicular pain Low TSH level (Chronic) Lumbar disc disease (Chronic) Dyslipidemia Gout Chronic pain (Chronic) GERD without esophagitis (Chronic) Hypertension (Chronic) Medical History Cardiac arrest with ventricular fibrillation Gout Hydronephrosis with renal and ureteral calculus obstruction Edema of right ankle Right ankle pain Acute kidney injury Surgical History S/P ureteral stent placement History of lumbar surgery once or twice? per patient History of cervical spinal surgery x2 Family History Denies family history of Ovarian cancer Prostate cancer Myocardial infarction Breast cancer Colorectal cancer Social History Smoking Status: Former smoker Tobacco Type: Cigarettes Age Started Using Tobacco: 18; Age Quit Using Tobacco: 35; packs per day: 4; Second Hand Exposure: No; Do You Dip or Chew Tobacco: No; Hx Alcohol Use: No Hx Substance Use: No Preferred Language: Uzbek Communication Ability: Effective Visual Impairment: No Limitations Hearing Ability: Normal Job Developer Required: No Beliefs That Will Affect Care: None marital status: Current Living Situation: Spouse and Family Current Living Situation Comment: and granddaughter current occupational status: retired How many Children do You have: 2 Other Information That Helps Us Care for You: No Feels Safe at Home: Yes Safety Concerns: Feels Safe At This Time Childhood Exposure to Second-Hand Smoke: No Diet: regular caffeine: No during the past year weight has: remained stable Dental Care, Regularly: Yes Physical Activity Frequency: Daily Seatbelt Use: always Sunscreen Use: No Assistive Devices: Cane, Denture - Upper and Glasses Review of Systems Review of Systems: All systems reviewed & are unremarkable except as noted in HPI & below Physical Exam Constitutional: WD/WN, vitals as above Eyes: PERRL, conjunctivae normal, anicteric sclerae PERRL, EOM intact bilaterally and + nystagmus (With horizontal nystagmus with looking to the right) ENMT: external ear and nose normal, oropharynx normal Neck: trachea midline, no thyromegaly Respiratory: normal respiratory effort, lungs clear to auscultation Cardiovascular: Rate/Rhythm: regular rhythm and + bradycardic Heart Sounds: + murmur (3/6 MUMTAZ at RUSB, with squeaking high-pitched quality) Chest (Breasts): Chest: normal inspection of chest Gastrointestinal (Abdomen): normal bowel sounds, soft, nontender, no hepatosplenomegaly Musculoskeletal: Extremities: extremities normal to inspection; no cyanosis and no clubbing Skin: no rashes, warm and dry Neurologic: PERRL, EOMI, accommodation nl, no face palsy, no dysarthria moves all extremities and awake; no focal motor deficits Speech / Cognition: normal speech, no expressive aphasia and normal cognition Motor/Sensory: no tremor, no pronator drift and no sensory deficit Psychiatric: A+Ox3, euthymic affect Lymphatic: no lymphedema Results & Data Results & Data Vital Signs (Past 12 Hours) Vital Signs Temp Pulse Pulse Resp Resp BP Pulse Ox 05/25/24 11:30 52 L 20 141/63 H 93 05/25/24 11:05 48 L 05/25/24 11:00 49 L 16 130/78 96 05/25/24 10:30 51 L 12 130/78 99 05/25/24 10:00 48 L 18 139/87 97 05/25/24 09:52 56 L 20 05/25/24 09:46 147/110 H 05/25/24 09:30 156/86 H 05/25/24 09:03 46 L 18 162/80 H 96 05/25/24 08:03 50 L 14 131/85 95 05/25/24 07:36 50 L 20 141/86 H 96 05/25/24 07:14 51 L 05/25/24 07:12 52 L 26 H 162/87 H 99 05/25/24 07:08 35.8 C L 50 L 24 162/87 H 99 Pulse Ox O2 Del Method 05/25/24 11:30 Room Air 05/25/24 11:05 05/25/24 11:00 Room Air 05/25/24 10:30 Room Air 05/25/24 10:00 Room Air 05/25/24 09:52 99 Room Air 05/25/24 09:46 05/25/24 09:30 05/25/24 09:03 Room Air 05/25/24 08:03 Room Air 05/25/24 07:36 Room Air 05/25/24 07:14 05/25/24 07:12 Room Air 05/25/24 07:08 Room Air Laboratory Results CBC coags, CMP, troponin, lipase, UA viral respiratory BioFire panel all reviewed Diagnostic Findings CT head, CTA head and neck, CT A/P reviewed ECG Additional Comments: ECG on 05/25/2024 at 7:10 AM with sinus bradycardia, rate 52, left anterior fascicular block, no acute ischemic changes Code Status & VTE Plan Code Status Full code VTE Prophylaxis Plan VTE Prophylaxis will be ordered: Yes PG Care Time/CCT Total # of Minutes Spent Total Time Spent with Patient: Total time spent is greater than 50% in coordination of care (as documented) at patient's floor/unit and/or counseling patient: Coding Level of Care Code 96136 INT INP/OBS CARE 3/75MIN Diagnoses Dizziness R42 Nausea and vomiting R11.2 Aortic stenosis I35.0 CAD (coronary artery disease), lummi coronary artery I25.10 Nonischemic cardiomyopathy I42.8
[2024-05-25] MEDS: MIDODRINE HCL 10 MG TAB PO ONE (14:08)
[2024-05-25] MEDS ORDERED: ACETAMINOPHEN 325 MG TAB PO PRN (14:48)
[2024-05-25] MEDS ORDERED: ALUMINUM/MAGNESIUM SUSP 30 ML UDC PO PRN (14:48)
[2024-05-25] MEDS ORDERED: ONDANSETRON INJ 2 MG/ML 2 ML VIAL IV PRN (14:48)
[2024-05-25] MEDS ORDERED: INFLUENZA VACC TS2024-25(65y+)/PF (IIV3) 0.5mL Syr IM ONE (15:08)
[2024-05-25] MEDS: ENOXAPARIN INJ 40 MG/0.4 ML SYR SQ SCH (16:14)
[2024-05-25] MEDS: ASPIRIN 81 MG ECTAB PO SCH (16:15)
[2024-05-25] MEDS: CLOPIDOGREL BISULFATE 75 MG TAB PO SCH (16:16)
[2024-05-25] MEDS: METOPROLOL SUCC 25MG EXT REL TAB PO SCH (16:16)
[2024-05-25] MEDS: MIDODRINE HCL 10 MG TAB PO SCH (17:12)
[2024-05-25] MEDS: MECLIZINE HCL 25 MG TAB PO SCH (20:11)
[2024-05-26 06:19] LABS: Basophils # (auto) 0.11 K/uL (0.00-0.20); Basophils % (auto) 1.5 %; Eosinophils # (auto) 0.38 K/uL (0.00-0.50); Eosinophils % (auto) 5.2 %; Hematocrit (blood only) 45.2 % (42.0-52.0); Hemoglobin 15.1 g/dl (14.0-18.0); Immature Granulocytes # (auto) 0.01 K/uL (0.01-0.20); Immature Granulocytes % (auto) 0.1 %; Lymphocytes # (auto) 1.92 K/uL (1.20-3.40); Lymphocytes % (auto) 26.4 %; Mean Corpuscular Hemoglobin 31.3 pg (25.0-34.0); Mean Corpuscular Hgb Conc 33.4 g/dL (32.0-36.0); Mean Corpuscular Volume 93.6 fL (80.0-100.0); Mean Platelet Volume 9.8 fL (9.4-12.4); Monocytes # (auto) 0.89 K/uL (0.11-0.59); Monocytes % (auto) 12.2 %; Neutrophils # (auto) 3.96 K/uL (1.40-6.50); Neutrophils % (auto) 54.6 %; Platelet Count 202 K/uL (130-400); RDW Coefficient of Variation 13.2 % (11.5-14.5); RDW Standard Deviation 44.7 fL (36.4-46.3); Red Blood Count 4.83 M/uL (4.70-6.10); White Blood Count 7.27 K/ul (4.8-10.8)
[2024-05-26 06:41] LABS: Albumin Globulin Ratio 1.4 (0.9-2); Albumin Level 3.6 gm/dl (3.4-5.0); BUN Creatinine Ratio 9.5 (10-20); Bilirubin,Total 0.9 mg/dl (0.2-1.0); Calcium 9.1 mg/dl (8.6-10.3); Creatinine Clr Calc Pharmacy 92.8 ml/min; Globulin 2.6 gm/dl (2.5-4.0); Total Protein 6.2 gm/dl (6.0-8.3)
[2024-05-26 08:14] VITALS: RESP 18
--- NOTE | 2024-05-26 08:56 | Electrocardiogram Report ---
Test Reason : Blood Pressure : */* mmHG Vent. Rate : 52 BPM Atrial Rate : 52 BPM P-R Int : 188 ms QRS Dur : 104 ms QT Int : 502 ms P-R-T Axes : 73 -56 -45 degrees QTcB Int : 466 ms Sinus bradycardia Left anterior fascicular block Septal infarct (cited on or before 25-May-2024) Abnormal ECG When compared with ECG of 25-May-2024 07:10, Nonspecific T wave abnormality now evident in Anterolateral leads Confirmed by Emmanuelle Chase (Adelina) on 05/26/2024 8:55:41 AM Referred By: REFERRED SELF Confirmed By: Emmanuelle Chase
--- NOTE | 2024-05-26 10:01 | Neurology Consultation ---
Date of Consultation May 26, 2024 Assessment & Plan (1) Vertigo: History of Present Illness Attending Physician: Laz Robins DO History of Present Illness this morning feeling well. no more vertigo. resolved nausea. CT/CTA head negative. chart reviewed. admission HPI: This is a 69-year-old male with a complex medical history of a V- fib arrest in 01/2024 and nonischemic CM (with EF 15% recovered to 50%) currently wearing LifeVest, CAD s/p ramus intermedius stent 01/2024, RA, moderate aortic stenosis, ?orthostasis, HL, gout, fatty liver, who presents to the ER with 1 day of dizziness with N/V. Denies diarrhea. No shocks from his LifeVest. He reports when he laid down in his bed the day before admission, he immediately got the "room spins" but went to sleep. When he woke up the next morning, he continued to have the room spinning around him and he had difficulty walking to the bathroom. No focal weakness but feels generally weak. Denies chest pains. He sort of feels a little bit lightheaded when he gets up but he does have a known history of orthostasis and is on midodrine. He had multiple episodes of N/V but that now seems to be improved. Allergies Allergy/AdvReac Type Severity Reaction Status Date / Time pregabalin [From Abraham TOM] Allergy Severe anaphylaxis Verified 05/25/24 09:19 gabapentin Allergy Intermediate Extreme Verified 05/25/24 09:19 nausea and vomitting allopurinol AdvReac Severe Facial Verified 05/25/24 09:19 swelling Home Medications Medication Instructions Recorded Confirmed Type aspirin 81 mg tablet,delayed 81 mg PO DAILY 03/03/24 05/25/24 History release clopidogrel 75 mg tablet (Plavix) 75 mg PO DAILY 03/10/24 05/25/24 History metoprolol succinate 25 mg 12.5 mg PO DAILY 04/02/24 05/25/24 History tablet,extended release 24 hr midodrine 10 mg tablet 10 mg PO TID 05/25/24 05/25/24 History Patient History Medical History Cardiac arrest with ventricular fibrillation Gout Hydronephrosis with renal and ureteral calculus obstruction Edema of right ankle Right ankle pain Acute kidney injury Surgical History S/P ureteral stent placement History of lumbar surgery once or twice? per patient History of cervical spinal surgery x2 Family History Denies family history of Ovarian cancer Prostate cancer Myocardial infarction Breast cancer Colorectal cancer Social History Smoking Status: Former smoker Tobacco Type: Cigarettes Age Started Using Tobacco: 18; Age Quit Using Tobacco: 35; packs per day: 4; Second Hand Exposure: No; Do You Dip or Chew Tobacco: No; Hx Alcohol Use: No Hx Substance Use: No Preferred Language: Divehi Communication Ability: Effective Visual Impairment: No Limitations Hearing Ability: Normal Teacher Specialist Required: No Beliefs That Will Affect Care: None marital status: Current Living Situation: Spouse and Family Current Living Situation Comment: and granddaughter current occupational status: retired How many Children do You have: 2 Other Information That Helps Us Care for You: No Feels Safe at Home: Yes Safety Concerns: Feels Safe At This Time Childhood Exposure to Second-Hand Smoke: No Diet: regular caffeine: No during the past year weight has: remained stable Dental Care, Regularly: Yes Physical Activity Frequency: Daily Seatbelt Use: always Sunscreen Use: No Assistive Devices: Cane, Denture - Upper and Glasses Exam (Neuro) Physical Exam: HEENT: normocephalic grossly Neuro: Mental: AOx4, fluent speech, normal comprehension, no apraxia, CN: PERRL, Full EOM, symmetric face, Motor: No abnormal movements, grossly intact. Coord: intact FNT b/l Gait: intact grossly Impression: 69 yo male with likely peripheral vertigo (BPPV), now resolved. Recommendations: no need for mri brain avoid sudden position change. avoid bending down and sudden head position change. if return symptoms, follow up with ENT. no further neuro work up needed at this point. call again if new question. discussed with hospitalist. Chart reviewed I have spent more than 50% educating patient about potential diagnosis and neurological evaluation and coordinating care with patient's treatment team. Total time spent (including chart review and coordination of care): 45 min (this includes chart review). Results & Data Vital Signs (Past 12 Hours) Vital Signs Temp Pulse Pulse Resp BP Pulse Ox O2 Del Method 05/26/24 08:13 36.4 C L 70 18 156/94 H 98 Room Air 05/26/24 03:53 36.5 C 50 L 16 154/89 H 96 Room Air 05/25/24 23:51 36.4 C L 54 L 16 117/70 92 Room Air 05/25/24 22:00 51 L PG Care Time/CCT Total # of Minutes Spent Total Time Spent with Patient: Total time spent is greater than 50% in coordination of care (as documented) at patient's floor/unit and/or counseling patient: Coding Level of Care Code 46752 IN/OBS CONSULT LVL 3,45M Diagnoses Vertigo R42
--- NOTE | 2024-05-26 12:32 | Discharge Summary ---
Date of Service May 26, 2024 Admission HPI Per Admitting Provider This is a 69-year-old male with a complex medical history of a V-fib arrest in 01/2024 currently wearing LifeVest with nonischemic cardiomyopathy with EF 15% now recovered to 55% as per patient, CAD s/p ramus intermedius stent 01/2024, RA, moderate aortic stenosis, ?orthostasis, HL, gout, fatty liver, who presents to the ER with 1 day of dizziness with N/V. Denies diarrhea. No shocks from his LifeVest. He reports when he laid down in his bed last evening, he immediately got the "room spins" but went to sleep. When he woke up this morning, he continued to have the room spinning around him and he had difficulty walking to the bathroom. No focal weakness but feels generally weak. Denies chest pains. He sort of feels a little bit lightheaded when he gets up but he does have a known history of orthostasis and is on midodrine. He had multiple episodes of N/V but that now seems to be improved. In the ER, he had a CT of the head and a CT angiogram of the head and neck which were normal. He was in sinus bradycardia with normal blood pressures and orthostatics had a slight drop by about 15 points but were not floridly positive. All his other lab work was normal. The patient was given 1 dose of meclizine and IV fluids prior to admission and this seemed to help somewhat. He is severely claustrophobic and reports he has tried to do MRIs with Ativan in the past and he "went nuts" in the scanner. He reports he would have to go under general anesthesia to get an MRI of the brain. Admission Exam Per Admitting Provider Constitutional: WD/WN, vitals as above Eyes: PERRL, conjunctivae normal, anicteric sclerae PERRL, EOM intact bilaterally and + nystagmus (With horizontal nystagmus with looking to the right) ENMT: external ear and nose normal, oropharynx normal Neck: trachea midline, no thyromegaly Respiratory: normal respiratory effort, lungs clear to auscultation Cardiovascular: Rate/Rhythm: regular rhythm and + bradycardic Heart Sounds: + murmur (3/6 MUMTAZ at RUSB, with squeaking high-pitched quality) Chest (Breasts): Chest: normal inspection of chest Gastrointestinal (Abdomen): normal bowel sounds, soft, nontender, no hepatosplenomegaly Musculoskeletal: Extremities: extremities normal to inspection; no cyanosis and no clubbing Skin: no rashes, warm and dry Neurologic: PERRL, EOMI, accommodation nl, no face palsy, no dysarthria moves all extremities and awake; no focal motor deficits Speech / Cognition: normal speech, no expressive aphasia and normal cognition Motor/Sensory: no tremor, no pronator drift and no sensory deficit Psychiatric: A+Ox3, euthymic affect Lymphatic: no lymphedema Principal Diagnosis Severe aortic stenosis Discharge Exam General: patient resting comfortably, NAD, non-toxic in appearance, answers questions appropriately. Skin: warm, dry, intact HEENT: NC/AT, anicteric sclera, conjunctiva without injection, moist mucus membranes. Heart: +S1/S2, regular, no m/r/g Lungs: equal air entry bilaterally, no rales/rhonchi/wheezes Abd: +BS, soft, NT/ND Ext: warm, no clubbing/cyanosis or edema Neuro: nonfocal, speech intact, no facial droop, moving all extremities. Discharge Data Allergies Allergy/AdvReac Type Severity Reaction Status Date / Time pregabalin [From Lyadina TOM] Allergy Severe anaphylaxis Verified 05/25/24 09:19 gabapentin Allergy Intermediate Extreme Verified 05/25/24 09:19 nausea and vomitting allopurinol AdvReac Severe Facial Verified 05/25/24 09:19 swelling Consultations 05/25/24 11:38 ED Decision to Admit Stat 05/25/24 14:48 Consult Cardiology Routine Consult Neurology Routine Ordered Studies 05/25/24 07:35 CT abd pelvis IV con only Stat 05/25/24 09:54 CT angio head wo/w Stat CT angio neck with con Stat Hospital Course (1) Dizziness: - Neurology saw patient and they did not feel this was a central process. - CT head, neck without acute abnormalities. Patient with severe claustrophobia, MRI initially recommended, but evaluation by neurology confirms likely peripheral process with fluctuating nausea and vomiting. (2) Aortic stenosis: concerned that the is severe and the LV dysfunction is related to the valve. It is also possible that the cardiac arrest could have been related to the . - [place] [facility] [place] (3) Nonischemic cardiomyopathy: with single vessel IR disease s/p BASSAM in January. He remains on ASA and Plavix cont BB for now ideally, I'd like to get him on GDMT Clinically he does not appear to have CHF (4) CAD (coronary artery disease), [place] coronary artery: single vessel IR disease-unlikely this is cause of the CMP (5) Orthostatic hypotension: cont midodrine for now r/o adrenal insufficiency/infarct with recent cardiac arrest AM cortisol: 4.46 Fluctuating hypertension and hypotension TAVR therapy likely to improve this Plan Case discussed with primary team. Will recommend transfer to tertiary center for comprehensive eval of the -rec right and left heart cath with dobutamine, vs cardiac MRI. Further rec after I have discussed with [facility]. Pt does not want to go back to [facility]-he has had other surgeries at [facility] and would like to go there. I attempted to talk with Dr. Jose but have been unable to get through to him at this time. I will update when available. Thank you for allowing me to participate in the care of this very nice patient. Total Time Total Time Spent Total Time Spent (In Minutes): See attending attestation Discharge Plan Discharge Items Patient Disposition: Transfer Acute Care Hospital Reason For Visit: DIZZINESS, N/V Discharge Diagnosis: severe Activity: Per Instructions section Non-emergency contact: Primary Care Provider, Instructional Design Consultant and Tile Decorator Call non-emergency contact if: your pain is not controlled and your temperature is above 101.5 Follow-up/Referrals: Anish Henry III, CRNP [Primary Care Provider] - Diet: Other - See Diet Comment Diet Comment: NPO Addtl Attending Provider Instructions: (1) Dizziness: (2) Nausea and vomiting: (3) Aortic stenosis: (4) CAD (coronary artery disease), [place] coronary artery: (5) Nonischemic cardiomyopathy: Plan This is a 69-year-old male with a complex medical history of a V-fib arrest in 01/2024 and nonischemic CM (with EF 15% recovered to 50%) currently wearing LifeVest, CAD s/p ramus intermedius stent 01/2024, RA, moderate aortic stenosis, ?orthostasis, HL, gout, fatty liver, who presents to the ER with 1 day of dizziness with N/V. Denies diarrhea. No shocks from his LifeVest. He reports when he laid down in his bed the day before admission, he immediately got the "room spins" but went to sleep. When he woke up the next morning, he continued to have the room spinning around him and he had difficulty walking to the bathroom. No focal weakness but feels generally weak. Denies chest pains. He sort of feels a little bit lightheaded when he gets up but he does have a known history of orthostasis and is on midodrine. He had multiple episodes of N/V but that now seems to be improved. #Dizziness/N/V Presents with dizziness like room spinning x 1 day with associated N/V. In the ER, he had a CT of the head and a CT angiogram of the head and neck which were normal. He was in sinus bradycardia with normal blood pressures and orthostatics had a slight drop by about 15 points but were not floridly positive. All his other lab work was normal. The patient was given 1 dose of meclizine and IV fluids prior to admission and this seemed to help somewhat. He is severely claustrophobic and reports he has tried to do MRIs with Ativan in the past and he "went nuts" in the scanner and would need general anesthesia. Unable to r/o stroke. His LifeVest has not gone off and I do not suspect ventricular arrhythmia. Troponin negative x 1. Neurology consulted - does not believe this is due to a central cause. Cardiology consulted - reviewed ECHO showing significant . Believes symptoms likely related to severe . Emmanuelle Chase spoke to the transfer center at [facility] regarding patient's care. Plan for possible valve replacement. Patient transferred via ambulance with ACLS. -Admit to PCU for arrhythmia monitoring given complex cardiac history -Repeat troponin -Scheduled meclizine 25 Mg p.o. 3 times daily -Zofran as needed for nausea -Consult neurology-appreciate recommendations-did discuss with on-call Dr. Stanford on the phone on 05/25 who recommended trying to convince patient to get at least diffusion and FLAIR images with MRI with premedication with Valium but patient declines to do this. I do not think we need to put him under general anesthesia to get an MRI if symptoms resolved by tomorrow. Regardless he is on dual antiplatelet therapy which would treat for TIA or stroke -Continue home midodrine 10 Mg 3 times daily for ongoing mild orthostasis -Follow CBC, CMP, magnesium in the morning #Nonischemic CM/history of V-fib arrest/orthostasis Had V-fib arrest in 01/2024. Had cardiac cath with stent placed in ramus intermedius which was not thought to be the culprit of his severe cardiomyopathy with EF 15%. He has been wearing a LifeVest since then but most recent echo as per scanned in reports from 03/2024 shows improvement in EF to 50%. He has been on Toprol XL and follows with Dr. Jose of cardiology in [place]. He was placed on midodrine at the time of discharge from there but he has no idea why- suspect orthostasis and/hypotension with need to continue on Toprol XL. He had been on amiodarone but this was also discontinued in 03/2024 for severe elevation of LFTs -Monitor on telemetry -Consult cardiology for further input -Continue Toprol-XL with hold parameters, continue midodrine -Awaiting cardiac MRI as outpatient, needs to be scheduled with general a nesthesia #CAD/moderate aortic stenosis With stent in the ramus intermedius in 01/2024, no acute issues. His statin was discontinued in 03/2024 for severe elevation of LFTs -Continue aspirin, Plavix #Rheumatoid arthritis Currently off his leflunomide due to recent elevation in LFTs which may have been from shock liver from previous cardiac arrest versus amiodarone or statin induced liver injury Follows with rheumatology in [place] DVT prophylaxis-Lovenox SQ, SCDs Disposition-admit to PCU, PT/OT consulted Pending Studies at Discharge: No Stand-Alone Forms: My [facility] Skilled Items Patient informed of condition?: Yes DNR: No Discharge Level of Care: Other Communicable Disease: No Discharge Prognosis: Stable Lines: Peripheral IV Urinary Catheter: No Medications and DC Order Prescriptions: Continued metoprolol succinate 25 mg tablet extended release 24 hr 12.5 mg PO DAILY clopidogrel [Plavix] 75 mg tablet 75 mg PO DAILY aspirin 81 mg tablet,delayed release (DR/EC) 81 mg PO DAILY midodrine 10 mg tablet 10 mg PO TID Discharge Orders: Discharge Order (Routine); Ordered 05/26/24 Ordered By: Jody Emery Admission Data Admit Date/Time: 05/25/24 13:20 Attending Provider: Laz Robins Admit Provider: Gloria Tai Primary Care Provider: Anish Henry III Other Providers: Gloria Tai; Emmanuelle Chase; Jed Stanford Other Interventions: Discharge Summary Assessment (RN) Last Done: 05/26/24 15:57 Supervising Physician Co-Signing Physician Notes I personally examined the patient and verified all matthews points of history and exam, discussed case, and agree with decision making with Dr Guardado Choreography Director input appreciated. Cardiology had discussed with [place] and [place]. Vitals noted, in general he is awake and alert pleasant no distress. HEENT normocephalic atraumatic mucous membranes moist. Breathing unlabored no accessory muscle use good effort. Skin without rashes pallor or icterus. Neuro without focal deficits. Vertigoneurology suspecting positional vertigobut at the same time cardiology has solid suspicion that at least some of his symptoms related to aortic stenosis and also that diagnostically the aortic stenosis is fairly severegiven all of this, and given that this would be a much more ominous diagnosis, will need to follow through with cardiology's plan for transfer to tertiary and evaluation for TAVR. Patient agrees with this plan as well. Appreciate cardiology assistance.
--- NOTE | 2024-05-26 13:09 | Cardiology Consultation ---
Date of Consultation May 26, 2024 Assessment & Plan (1) Dizziness: Neurology saw patient and they did not feel this was a central process. (2) Aortic stenosis: concerned that the is severe and the LV dysfunction is related to the valve. It is also possible that the cardiac arrest could have been related to the . (3) Nonischemic cardiomyopathy: with single vessel IR disease s/p BASSAM in January. He remains on ASA and Plavix cont BB for now ideally, I'd like to get him on GDMT Clinically he does not appear to have CHF (4) CAD (coronary artery disease), [place] coronary artery: single vessel IR disease-unlikely this is cause of the CMP (5) Orthostatic hypotension: cont midodrine for now r/o adrenal insufficiency/infarct with recent cardiac arrest check cortisol level Plan Case discussed with primary team. Will recommend transfer to tertiary center for comprehensive eval of the -rec right and left heart cath with dobutamine, vs cardiac MRI. Further rec after I have discussed with [facility]. Pt does not want to go back to [facility]-he has had other surgeries at [facility] and would like to go there. I attempted to talk with Dr. Jose but have been unable to get through to him at this time. I will update when available. Thank you for allowing me to participate in the care of this very nice patient. History of Present Illness Reason for Consultation: cardiac symptoms Requesting Physician: Dr. Rell Cardoso Attending Physician: Laz Robins, DO History of Present Illness This is a 69 y/o man with a hx of moderately severe with prior EF 40-45% over the summer 2023, who underwent a DSE around that time to assess the severity of the and it was thought to be at least moderate. In early January, both he and his became sick with COVID and were placed on Paxlovid. About a week after treatment, he suffered a cardiac arrest at home-his called 911 and initiated CPR. Upon arrival, EMS shocked him multiple times and eventually obtained ROSC. He lives in [place] and was transported to [facility] where he underwent urgent cath. He was found to have single vessel Ramus disease and this was stented. From my conversation with the patient and his , this was thought NOT to be the cause of his arrest however. The EF at the time was severely effected and he was DC with a LIFEVEST which he is still wearing along with only metoprolol XL 25mg. He was previously on lisinopril but this was not continued. He was not DC on ENTRESTO. He was DC on midodrine 10mg tid however for severe orthostatic changes, along wioth statin and amiodarone. He was seen in March by Dr. Jose from [place] and due to marked elevation in transaminases (400+), the amio and statin were DC. In that note, there is no mention of the however. In addition, he was to cont the Lifevest. HE NOW PRESENTS with an episode of severe dizziness which he reports he had the day prior to admission He came in to the ER with 1 day of dizziness with N/V. Denies diarrhea. No shocks from his LifeVest. He reports when he laid down in his bed the day before admission, he immediately got the "room spins" but went to sleep. When I interviewed him the dizziness was when he sat up, and did not appear to be vertigo. He woke up in the early am hours with diaphoresis and severe dizziness-he checked his BP and it was elevated. He went out side to get cold air, but remained severely dizzy. No focal weakness but feels generally weak. Denies chest pains. He sort of feels a little bit lightheaded when he gets up but he does have a known history of orthostasis and is on midodrine. His BP initially dropped about 30 points from lying to standing with reproduced symptoms, but the was no compensatory increase in the HR-it remains in the 50- 60s. His ECG shows SB with LAHB, septal MD age undetermined His ECHO shows EF about 30-35%, peak transaortic velocities about 3.4m/sec with peak and mean gradients 45/21mmHg ARMOND 0.8-1.0cm2. Given the LV dysfunction, the may be moderate or severe. Allergies Allergy/AdvReac Type Severity Reaction Status Date / Time pregabalin [From Abraham TOM] Allergy Severe anaphylaxis Verified 05/25/24 09:19 gabapentin Allergy Intermediate Extreme Verified 05/25/24 09:19 nausea and vomitting allopurinol AdvReac Severe Facial Verified 05/25/24 09:19 swelling Home Medications Medication Instructions Recorded Confirmed Type aspirin 81 mg tablet,delayed 81 mg PO DAILY 03/03/24 05/25/24 History release clopidogrel 75 mg tablet (Plavix) 75 mg PO DAILY 03/10/24 05/25/24 History metoprolol succinate 25 mg 12.5 mg PO DAILY 04/02/24 05/25/24 History tablet,extended release 24 hr midodrine 10 mg tablet 10 mg PO TID 05/25/24 05/25/24 History Patient History Medical History Cardiac arrest with ventricular fibrillation Gout Hydronephrosis with renal and ureteral calculus obstruction Edema of right ankle Right ankle pain Acute kidney injury Surgical History S/P ureteral stent placement History of lumbar surgery once or twice? per patient History of cervical spinal surgery x2 Family History Denies family history of Ovarian cancer Prostate cancer Myocardial infarction Breast cancer Colorectal cancer Social History Smoking Status: Former smoker Tobacco Type: Cigarettes Age Started Using Tobacco: 18; Age Quit Using Tobacco: 35; packs per day: 4; Second Hand Exposure: No; Do You Dip or Chew Tobacco: No; Hx Alcohol Use: No Hx Substance Use: No Preferred Language: Portuguese Communication Ability: Effective Visual Impairment: No Limitations Hearing Ability: Normal Drier Required: No Beliefs That Will Affect Care: None marital status: Current Living Situation: Spouse and Family Current Living Situation Comment: and granddaughter current occupational status: retired How many Children do You have: 2 Other Information That Helps Us Care for You: No Feels Safe at Home: Yes Safety Concerns: Feels Safe At This Time Childhood Exposure to Second-Hand Smoke: No Diet: regular caffeine: No during the past year weight has: remained stable Dental Care, Regularly: Yes Physical Activity Frequency: Daily Seatbelt Use: always Sunscreen Use: No Assistive Devices: Cane, Denture - Upper and Glasses Review of Systems Review of Systems: All systems reviewed & are unremarkable except as noted in HPI & below Physical Exam Physical Exam: AAO x 3 Neck: no JVD b/l bruits noted Respiratory: CTA Cardiovascular: Grade 2-3 crescendo-decrescendo murmur appreciated at the base-radiates to the neck Results & Data Vital Signs (Past 12 Hours) Vital Signs Temp Pulse Pulse Resp BP Pulse Ox O2 Del Method 05/26/24 08:13 36.4 C L 70 18 156/94 H 98 Room Air 05/26/24 03:53 36.5 C 50 L 16 154/89 H 96 Room Air 05/25/24 23:51 36.4 C L 54 L 16 117/70 92 Room Air 05/25/24 22:00 51 L Laboratory Results Abnormal lab results 05/26/24 Range/Units 05:30 Hendry # (Auto) 0.89 H (0.11-0.59) K/uL BUN/Creatinine Ratio 9.5 L (10-20) Cortisol AM Sample 4.46 L (6.2-22.6) mcg/dl Medications Administered Aspirin (Aspirin 81 Mg Ectab) 81 mg PO DAILY [facility] Stop: 06/24/24 15:14 Last Admin: 05/26/24 09:04 Dose: 81 mg Documented By: Admin: 05/25/24 16:15 Dose: 81 mg Documented By: CHRISTINE Clopidogrel Bisulfate (Clopidogrel Bisulfate 75 Mg Tab) 75 mg PO DAILY LARRY Stop: 06/24/24 15:14 Last Admin: 05/26/24 09:04 Dose: 75 mg Documented By: Admin: 05/25/24 16:16 Dose: 75 mg Documented By: CAMACHO Enoxaparin Sodium (Enoxaparin Inj 40 Mg/0.4 Ml Syr) 40 mg SQ Q24H LARRY Stop: 06/24/24 14:59 Last Admin: 05/25/24 16:14 Dose: 40 mg Documented By: CAMACHO Meclizine HCl (Meclizine Hcl 25 Mg Tab) 25 mg PO TID LARRY Stop: 06/24/24 20:59 Last Admin: 05/26/24 09:04 Dose: 25 mg Documented By: Admin: 05/25/24 20:11 Dose: 25 mg Documented By: VK Metoprolol Succinate (Metoprolol Succ 25mg Ext Rel Tab) 12.5 mg PO DAILY LARRY Stop: 06/24/24 15:14 Last Admin: 05/26/24 09:03 Dose: 12.5 mg Documented By: Admin: 05/25/24 16:16 Dose: Not Given Documented By: CAMACHO Midodrine (Midodrine Hcl 10 Mg Tab) 10 mg PO TID@0600,1300,1800 LARRY Stop: 06/24/24 17:59 Last Admin: 05/26/24 05:10 Dose: Not Given Documented By: Admin: 05/25/24 17:12 Dose: Not Given Documented By: CAMACHO ECG Additional Comments: Sinus ramírez LAHB septal MD
[2024-05-26 15:51] VITALS: BP 155/87; PULSE 52; TEMP 97.9; O2SAT 92
--- NOTE | 2024-05-26 18:28 | Billing Data ---
Date of Service May 26, 2024 Coding Level of Care Code 76795 IN/OBS DISCH 30 MIN/LESS
== END 2024-05-26 16:27 | disposition short-term general hospital (02) | DRG 307 ==
LOC: ED 06:57 → 2S 13:20 → SUATTDRO 13:20 → 2S 14:14